=== PATIENT | female | born 1995 | race Caucasian/White ===

== ENCOUNTER 2016-09-11 20:10 | Emergency (ER) | payer OTHER ==
[2016-09-11] MEDS ORDERED: levETIRAcetam IV 1,500 MG in SALINE 1 100ML.BAG IVPB STA (20:51)
[2016-09-11] MEDS ORDERED: KETOROLAC 30 MG/ML 1 ML VIAL IVP STA (20:52)
[2016-09-11] MEDS ORDERED: ONDANSETRON 4 MG/2 ML VIAL IVP STA (20:52)
[2016-09-11 21:10] LABS: Anion Gap 10 mmol/L; Blood Urea Nitrogen 18 mg/dL (7-17); Calcium 9.8 mg/dL (8.4-10.2); Carbon Dioxide 25 mmol/L (22-30); Chloride 107 mmol/L (98-107); Creatine Kinase 85 U/L (30-135); Glucose 104 mg/dL (74-99); Magnesium 2.2 mg/dL (1.6-2.3); Non-African American GFR(MDRD) >60 (>60 ml/min/1.73 sqM); Potassium 4.3 mmol/L (3.5-5.1); Sodium 142 mmol/L (137-145)
[2016-09-11 21:11] LABS: Basophils # (A) 0.1 k/uL (0-0.2); Basophils % (A) 1 %; CH 31.4; CHCM 35.8; Eosinophils # (A) 0.1 k/uL (0-0.7); Eosinophils % (A) 1 %; HCT 40.1 % (34.0-46.0); HDW 2.76; HGB 13.8 gm/dL (11.4-16.0); Luc # (Auto) 0.26; Luc % (Auto) 3; Lymphocytes # (A) 4.4 k/uL (1.0-4.8); Lymphocytes % (A) 44 %; MCH 30.3 pg (25.0-35.0); MCHC 34.4 g/dL (31.0-37.0); MCV 88.1 fL (80.0-100.0); Mean Platelet Volume 6.3; Monocytes # (A) 0.5 k/uL (0-1.0); Monocytes % (A) 5 %; Neutrophils # (A) 4.6 k/uL (1.3-7.7); Neutrophils % (A) 46 %; RBC 4.56 m/uL (3.80-5.40); RDW 12.8 % (11.5-15.5); WBC (Perox) 10.38
--- NOTE | 2016-09-11 21:49 | ED ---
General Adult HPI - General Chief complaint: Seizure Stated complaint: Seizure Time Seen by Provider: 09/11/16 20:36 Source: patient, family, RN notes reviewed, old records reviewed Mode of arrival: EMS Limitations: no limitations - History of Present Illness Initial comments: 21 year old female with history of seizures presenting for seizure. Patient's states she had 4 short seizures prior to arrival today. Last seizure was about 3 weeks ago. Patient is supposed to be on seizure medication but has not taken it many months due to side effects. She does follow with Dr. Reinoso , neurology but has not followed up many months. She states she has a headache at this time. She does not remember the seizures. She denies any known injury from the seizures. - Related Data Home Medications Medication Instructions Recorded Confirmed Acetaminophen Tab [Tylenol Tab] 325 - 650 mg PO Q4H PRN 09/11/16 09/11/16 Previous Rx's Medication Instructions Recorded levETIRAcetam [Keppra] 500 mg PO BID 30 Days 09/11/16 Allergies Allergy/AdvReac Type Severity Reaction Status Date / Time No Known Allergies Allergy Verified 09/11/16 21:10 Review of Systems ROS Statement: Those systems with pertinent positive or pertinent negative responses have been documented in the HPI. ROS Other: All systems not noted in ROS Statement are negative. Past Medical History Past Medical History: Seizure Disorder Additional Past Medical History / Comment(s): ovarian cysts, HYPOGLYCEMIC, CONCUSSION IN PAST WITH FIRST SEIZURE SHE FELL. MIGRAINES, SEASONAL ALLERGIES/ SINUS, KIDNEYS STONE/UTI, ECZEMA, FX TO DALTON ANKLE/WRISTS-NO SX ,PT STATES CURRENTLY History of Any Multi-Drug Resistant Organisms: MRSA Date of last positivie culture/infection: 2005 MDRO Source:: R cheek Past Surgical History: No Surgical Hx Reported Additional Past Surgical History / Comment(s): Patient had a renal stent placed Past Anesthesia/Blood Transfusion Reactions: No Reported Reaction Additional Past Anesthesia/Blood Transfusion Reaction / Comment(s): WITH PAST DENTAL WORK-NUMBED MOUTH -NO REACTION TO MEDS Past Psychological History: No Psychological Hx Reported Smoking Status: Former smoker Past Alcohol Use History: None Reported Additional Past Alcohol Use History / Comment(s): SMOKED X 3 YEARS 1PPD, QUIT 2011 Past Drug Use History: None Reported - Past Family History Mother Family Medical History: Osteoarthritis (OA) Additional Family Medical History / Comment(s): POLYCYSTIC OVARY DISEASE, HYPOGLYCEMIA, BONE SPURS, HERNIATED DISCS Father Family Medical History: Asthma Additional Family Medical History / Comment(s): HERNIATED DISCS/FUSIONS, HYPOGLYCEMIA General Exam - General Exam Comments Initial Comments: General: Awake and Alert. No acute distress. Does not appear acutely ill. Eyes: FINA, EOM intact. No nystagmus. No scleral icterus. HENT: Atraumatic, normocephalic. Mucous membranes moist. Trachea midline. Neck: The neck is supple, there is no tenderness or JVD. Cardiovascular: Regular rate and rhythm. No murmur, rub, or gallop is appreciated. Distal pulses intact. Respiratory: Lungs are clear to auscultation bilaterally. No wheezes, rales, rhonchi. No respiratory distress. Gastrointestinal: Soft, Nontender. No rebound or guarding. Non-distended. No masses or organomegaly noted. No CVA tenderness. Musculoskeletal: No tenderness. Normal ROM. No gross deformity. No strength deficits. Neurological: A&Ox3. CN II-XII grossly intact, There are no obvious motor or sensory deficits. Coordination appears grossly intact. Speech is normal. Skin: Skin is warm and dry and no rashes or lesions are noted. Psychiatric: Cooperative, appropriate mood & affect, normal judgment. Limitations: no limitations Course Vital Signs 09/11/16 09/11/16 09/11/16 20:22 21:03 21:46 Temperature 98.2 F Pulse Rate 75 60 48 L Respiratory 18 18 16 Rate Blood Pressure 143/102 110/81 86/51 O2 Sat by Pulse 99 98 97 Oximetry 09/11/16 21:53 Temperature Pulse Rate 45 L Respiratory Rate Blood Pressure 98/55 O2 Sat by Pulse 98 Oximetry EKG Findings - EKG Comments: EKG Findings:: 20:35. Sinus rhythm. Rate 51. CA 120. QRS 90. QT/QTc 462/ 425. Normal axis. No STEMI. Normal EKG. Medical Decision Making - Medical Decision Making 21-year-old female with history of seizures presenting for seizures. Patient with history of medication noncompliance due to side effect profile. Eschen with patient about risks and benefits of seizures or seizure medications. Patient ultimately elected to have Keppra load. She was given Keppra in the ED. Patient also given medication for headache. Otherwise she appears clinically stable without any focal neurological deficits. was present and also part of this conversation. Patient was ultimately observed in the ED for several hours. She had no return of seizures. Lab work was performed and grossly unremarkable. She is stable for discharge home. Discussed close follow -up with PCP and Dr. Reinoso. Discussed compliance with Keppra and was provided Rx for this. Discussed concerning signs and symptoms for immediate return to the ED. Patient is agreeable with plan and discharge home. - Lab Data Result diagrams: 09/11/16 20:30 09/11/16 20:30 Lab Results 09/11/16 09/11/16 09/11/16 Range/Units 20:30 20:30 21:08 WBC 10.0 (3.8-10.6) k/uL RBC 4.56 (3.80-5.40) m/uL Hgb 13.8 (11.4-16.0) gm/dL Hct 40.1 (34.0-46.0) % MCV 88.1 (80.0-100.0) fL MCH 30.3 (25.0-35.0) pg MCHC 34.4 (31.0-37.0) g/dL RDW 12.8 (11.5-15.5) % Plt Count 325 (150-450) k/uL Neutrophils % 46 % Lymphocytes % 44 % Monocytes % 5 % Eosinophils % 1 % Basophils % 1 % Neutrophils # 4.6 (1.3-7.7) k/uL Lymphocytes # 4.4 (1.0-4.8) k/uL Monocytes # 0.5 (0-1.0) k/uL Eosinophils # 0.1 (0-0.7) k/uL Basophils # 0.1 (0-0.2) k/uL Sodium 142 (137-145) mmol/L Potassium 4.3 (3.5-5.1) mmol/L Chloride 107 (98-107) mmol/L Carbon Dioxide 25 (22-30) mmol/L Anion Gap 10 mmol/L BUN 18 H (7-17) mg/dL Creatinine 0.70 (0.52-1.04) mg/dL Est GFR (MDRD) Af Amer >60 (>60 ml/min/1.73 sqM) Est GFR (MDRD) Non-Af >60 (>60 ml/min/1.73 sqM) Glucose 104 H (74-99) mg/dL Calcium 9.8 (8.4-10.2) mg/dL Magnesium 2.2 (1.6-2.3) mg/dL Creatine Kinase 85 (30-135) U/L Urine HCG, Qual Not Detected (Not Detectd) - EKG Data -: EKG Interpreted by Me EKG shows normal: sinus rhythm Rate: normal Disposition Clinical Impression: Seizure Disposition: HOME SELF-CARE Instructions: Recurrent Seizures in Adults (ED) Additional Instructions: Please take Keppra and follow up with Dr. Reinoso as soon as possible. Prescriptions: levETIRAcetam [Keppra] 500 mg PO BID 30 Days Referrals: Shaq Yanez MD [Primary Care Provider] - 1-2 days Phoebe Reinoso MD [STAFF PHYSICIAN] - 1-2 days Time of Disposition: 22:45
[2016-09-11 22:53] VITALS: BP 106/55; PULSE 62; RESP 18; TEMP 97.8
== END 2016-09-11 22:53 | disposition home or self-care (01) ==
LOC: EC 20:10
DX: G40.909 Epilepsy, unspecified, not intractable, without status epilepticus (principal); R51 Headache; Z87.891 Personal history of nicotine dependence
CPT/HCPCS: 36415; 80048; 82550; 83735; 85025; 81025; 99284; 96374; 96375; J2405; J1885; J1953; 93005

== ENCOUNTER 2016-09-29 19:22 | Emergency (ER) | payer OTHER ==
[2016-09-29 19:41] VITALS: BP 112/70; PULSE 72; RESP 18; TEMP 98
[2016-09-29] MEDS ORDERED: KETOTIFEN 0.025% OPHTH DROPS 5 ML BTL BOTH EYES STA (19:50)
--- NOTE | 2016-09-29 19:53 | ED ---
Eye Problem HPI - General Chief complaint: Eye Problems Stated complaint: left eye irritation Time Seen by Provider: 09/29/16 19:42 Source: patient, RN notes reviewed Mode of arrival: ambulatory Limitations: no limitations - History of Present Illness Initial comments: 21-year-old female presents to the emergency department with a chief complaint of left eye irritation. Patient states today she started itching became watery and she's having some burning-like sensation. Patient denies any changes in vision. Patient denies fever chills with this. Patient denies any purulent material or discharge. Patient states that she was concerned so she thought that she should be evaluated.Patient denies any recent fever, chills, shortness of breath, chest pain, back pain, abdominal pain, nausea vomiting, numbness or tingling, dysuria or hematuria, constipation or diarrhea, headaches or visual changes, or any other current symptoms. - Related Data Home Medications Medication Instructions Recorded Confirmed Acetaminophen Tab [Tylenol Tab] 325 - 650 mg PO Q4H PRN 09/11/16 09/11/16 Previous Rx's Medication Instructions Recorded levETIRAcetam [Keppra] 500 mg PO BID 30 Days 09/11/16 Allergies Allergy/AdvReac Type Severity Reaction Status Date / Time No Known Allergies Allergy Verified 09/11/16 21:10 Review of Systems ROS Statement: Those systems with pertinent positive or pertinent negative responses have been documented in the HPI. ROS Other: All systems not noted in ROS Statement are negative. Past Medical History Past Medical History: Seizure Disorder Additional Past Medical History / Comment(s): ovarian cysts, HYPOGLYCEMIC, CONCUSSION IN PAST WITH FIRST SEIZURE SHE FELL. MIGRAINES, SEASONAL ALLERGIES/ SINUS, KIDNEYS STONE/UTI, ECZEMA, FX TO DALTON ANKLE/WRISTS-NO SX ,PT STATES CURRENTLY History of Any Multi-Drug Resistant Organisms: MRSA Date of last positivie culture/infection: 2005 MDRO Source:: R cheek Past Surgical History: No Surgical Hx Reported Additional Past Surgical History / Comment(s): Patient had a renal stent placed Past Anesthesia/Blood Transfusion Reactions: No Reported Reaction Additional Past Anesthesia/Blood Transfusion Reaction / Comment(s): WITH PAST DENTAL WORK-NUMBED MOUTH -NO REACTION TO MEDS Past Psychological History: No Psychological Hx Reported Smoking Status: Former smoker Past Alcohol Use History: None Reported Additional Past Alcohol Use History / Comment(s): SMOKED X 3 YEARS 1PPD, QUIT 2011 Past Drug Use History: None Reported - Past Family History Mother Family Medical History: Osteoarthritis (OA) Additional Family Medical History / Comment(s): POLYCYSTIC OVARY DISEASE, HYPOGLYCEMIA, BONE SPURS, HERNIATED DISCS Father Family Medical History: Asthma Additional Family Medical History / Comment(s): HERNIATED DISCS/FUSIONS, HYPOGLYCEMIA General Exam Limitations: no limitations General appearance: alert, in no apparent distress Head exam: Present: atraumatic, normocephalic, normal inspection Eye exam: Present: normal appearance, PERRL, EOMI, conjunctival injection ( Minimal), other (Fluorescent staining done that does not show any corneal abrasion or foreign body with with aguilar lamp). Absent: scleral icterus, periorbital swelling, periorbital tenderness ENT exam: Present: normal exam, mucous membranes moist Respiratory exam: Present: normal lung sounds bilaterally. Absent: respiratory distress, wheezes, rales, rhonchi, stridor Cardiovascular Exam: Present: regular rate, normal rhythm, normal heart sounds. Absent: systolic murmur, diastolic murmur, rubs, gallop, clicks Neurological exam: Present: alert, oriented X3 Psychiatric exam: Present: normal affect, normal mood Skin exam: Present: warm, dry, intact, normal color. Absent: rash Course Vital Signs 09/29/16 19:38 Temperature 98.0 F Pulse Rate 72 Respiratory 18 Rate Blood Pressure 112/70 O2 Sat by Pulse 100 Oximetry Medical Decision Making - Medical Decision Making 20-year-old female presents to emergency room chief complaint of what appears to be ALLERGIC conjunctivitis. This we will start her on eyedrops to help with her symptoms. Discussed follow-up and given ophthalmology as well. Discussed follow-up patient's questions. She stated that she understood. She will be discharged home. Disposition Clinical Impression: Allergic conjunctivitis Disposition: HOME SELF-CARE Condition: Stable Instructions: Conjunctivitis (ED) Additional Instructions: Please use medication as discussed. Please follow up with family doctor if symptoms have not improved over the next two days. Please return to the emergency room if your symptoms increase or worsen or for any other concerns. Use drop twice a day to both eyes. Referrals: Shaq Yanez MD [Primary Care Provider] - 1-2 days Time of Disposition: 19:53
== END 2016-09-29 20:00 | disposition home or self-care (01) ==
LOC: EC 19:22
DX: O99.89 Other specified diseases and conditions complicating pregnancy, childbirth and the puerperium (principal); H10.12 Acute atopic conjunctivitis, left eye; Z87.891 Personal history of nicotine dependence; Z3A.00 Weeks of gestation of pregnancy not specified
CPT/HCPCS: 99283

== ENCOUNTER 2017-02-05 12:12 | Emergency (ER) | payer OTHER ==
[2017-02-05] MEDS ORDERED: ONDANSETRON ODT 4 MG TAB PO STA (13:24)
[2017-02-05] MEDS ORDERED: KETOROLAC 60 MG/2 ML VIAL IM STA (13:24)
--- NOTE | 2017-02-05 13:28 | ED ---
Female Urogenital HPI - General Chief complaint: Vaginal Bleeding Stated complaint: Abd pain, vaginal bleeding Time Seen by Provider: 02/05/17 13:16 Source: patient Mode of arrival: ambulatory Limitations: no limitations - History of Present Illness Initial comments: This 21-year-old white female presents with the complaint of some bilateral lower pelvic pain/cramping. It has been present for the last 4 days. She states that she initially started her period towards beginning of the month and it went for approximately 4 days. She then has had some slight vaginal bleeding since which is darkish in nature. This is somewhat atypical for her. The pain seems radiate into her inferior lumbar spine bilaterally. She denies any fevers or chills. She denies any other vaginal discharge. There are no urinary symptoms. She has had some slight nausea but no vomiting. She does not think that she is but is not sure. She does have a history of ovarian cysts as well as kidney stones. No other complaints or modifying factors. She is unsure if she may have lost a tampon in her vagina. Last Menstrual Period: 01/26/17 - Related Data Home Medications Medication Instructions Recorded Confirmed Acetaminophen Tab [Tylenol Tab] 325 - 650 mg PO Q4H PRN 09/11/16 02/05/17 Ibuprofen [Motrin] 200 - 400 mg PO Q6HR PRN 02/05/17 02/05/17 Allergies Allergy/AdvReac Type Severity Reaction Status Date / Time No Known Allergies Allergy Verified 02/05/17 14:05 Review of Systems ROS Statement: Those systems with pertinent positive or pertinent negative responses have been documented in the HPI. ROS Other: All systems not noted in ROS Statement are negative. Past Medical History Past Medical History: Seizure Disorder Additional Past Medical History / Comment(s): ovarian cysts, HYPOGLYCEMIC, CONCUSSION IN PAST WITH FIRST SEIZURE SHE FELL. MIGRAINES, SEASONAL ALLERGIES/ SINUS, KIDNEYS STONE/UTI, ECZEMA, FX TO DALTON ANKLE/WRISTS-NO SX ,PT STATES CURRENTLY History of Any Multi-Drug Resistant Organisms: MRSA Date of last positivie culture/infection: 2005 MDRO Source:: R cheek Past Surgical History: No Surgical Hx Reported Additional Past Surgical History / Comment(s): Patient had a renal stent placed Past Anesthesia/Blood Transfusion Reactions: No Reported Reaction Additional Past Anesthesia/Blood Transfusion Reaction / Comment(s): WITH PAST DENTAL WORK-NUMBED MOUTH -NO REACTION TO MEDS Past Psychological History: No Psychological Hx Reported Smoking Status: Current every day smoker Past Alcohol Use History: None Reported Past Drug Use History: None Reported - Past Family History Mother Family Medical History: Osteoarthritis (OA) Additional Family Medical History / Comment(s): POLYCYSTIC OVARY DISEASE, HYPOGLYCEMIA, BONE SPURS, HERNIATED DISCS Father Family Medical History: Asthma Additional Family Medical History / Comment(s): HERNIATED DISCS/FUSIONS, HYPOGLYCEMIA General Exam - General Exam Comments Initial Comments: GENERAL: The patient is well nourished and well hydrated. VITAL SIGNS: Heart rate, blood pressure, respiratory rate reviewed as recorded in nurse's notes. EYES: Pupils are round and reactive. Extraocular movements are intact. No conjunctival / lid redness or swelling. ENT: No external evidence of injury, swelling, or ecchymosis. Airway is patent. Throat is clear. NECK: Nontender. No swelling or evidence of injury. No subcutaneous emphysema. Trachea is midline. No thyroid mass. HEART: Regular rate and rhythm. Good peripheral pulses. LUNGS/CHEST: Breath sounds clear and equal bilaterally. No rales, rhonchi, or wheezes. No ecchymosis, subcutaneous emphysema, or tenderness. ABDOMEN: There is mild tenderness present to the bilateral lower pelvic region. No palpable masses or organomegaly. No peritoneal signs. No abdominal wall swelling or ecchymosis. EXTREMITIES: No extremity tenderness. Normal muscle tone and function. No thoracolumbar tenderness. NEUROLOGIC: Sensation is grossly intact. Cranial nerve exam reveals face is symmetrical, tongue is midline, speech is clear. SKIN: No abrasions or ecchymosis is noted. No induration or masses noted. PSYCHIATRIC: Alert and oriented. Appropriate behavior and judgment. Vaginal exam: There is some blood present in the vaginal canal. There is some mild tenderness to the uterus as well as bilateral adnexa. There is no vaginal discharge. There is no perineal lesions. Limitations: no limitations Course Vital Signs 02/05/17 02/05/17 12:26 16:25 Temperature 97.7 F 97.5 F L Pulse Rate 72 51 L Respiratory 16 18 Rate Blood Pressure 133/87 99/64 O2 Sat by Pulse 99 95 Oximetry Medical Decision Making - Medical Decision Making The patient was seen and examined. She did receive some parenteral Toradol and some oral dissolving Zofran. All diagnostics are reviewed. Pelvic exam is completed. Cultures are taken and she is instructed to follow-up with her doctor in 3 days for the results of these cultures. The patient had a pelvic ultrasound which didn't show evidence of a hemorrhagic cyst on the right ovary but no evidence of torsion. The laboratories reviewed. It is felt as though her pain likely is due to the ovarian cyst. Upon going to reevaluate the patient appears that she is eloped from the ER. She apparently did not let anybody know that she was leaving. - Lab Data Result diagrams: 02/05/17 13:42 Lab Results 02/05/17 02/05/17 02/05/17 Range/Units 13:42 13:42 13:42 WBC 9.2 (3.8-10.6) k/uL RBC 4.45 (3.80-5.40) m/uL Hgb 13.8 (11.4-16.0) gm/dL Hct 40.0 (34.0-46.0) % MCV 89.9 (80.0-100.0) fL MCH 30.9 (25.0-35.0) pg MCHC 34.4 (31.0-37.0) g/dL RDW 12.6 (11.5-15.5) % Plt Count 355 (150-450) k/uL Neutrophils % 64 % Lymphocytes % 29 % Monocytes % 4 % Eosinophils % 2 % Basophils % 0 % Neutrophils # 5.9 (1.3-7.7) k/uL Lymphocytes # 2.7 (1.0-4.8) k/uL Monocytes # 0.4 (0-1.0) k/uL Eosinophils # 0.2 (0-0.7) k/uL Basophils # 0.0 (0-0.2) k/uL Urine Color Yellow Urine Appearance Clear (Clear) Urine pH 6.0 (5.0-8.0) Ur Specific [place] 1.019 (1.001-1.035) Urine Protein Negative (Negative) Urine Glucose (UA) Negative (Negative) Urine Ketones Negative (Negative) Urine Blood Moderate H (Negative) Urine Nitrite Negative (Negative) Urine Bilirubin Negative (Negative) Urine Urobilinogen <2.0 (<2.0) mg/dL Ur Leukocyte Esterase Negative (Negative) Urine RBC 1 (0-5) /hpf Urine WBC 3 (0-5) /hpf Ur Squamous Epith Cells <1 (0-4) /hpf Urine Mucus Rare H (None) /hpf Urine HCG, Qual Not Detected (Not Detectd) Trichomonas Ag (Rapid) (Negative) 02/05/17 Range/Units 14:04 WBC (3.8-10.6) k/uL RBC (3.80-5.40) m/uL Hgb (11.4-16.0) gm/dL Hct (34.0-46.0) % MCV (80.0-100.0) fL MCH (25.0-35.0) pg MCHC (31.0-37.0) g/dL RDW (11.5-15.5) % Plt Count (150-450) k/uL Neutrophils % % Lymphocytes % % Monocytes % % Eosinophils % % Basophils % % Neutrophils # (1.3-7.7) k/uL Lymphocytes # (1.0-4.8) k/uL Monocytes # (0-1.0) k/uL Eosinophils # (0-0.7) k/uL Basophils # (0-0.2) k/uL Urine Color Urine Appearance (Clear) Urine pH (5.0-8.0) Ur Specific [place] (1.001-1.035) Urine Protein (Negative) Urine Glucose (UA) (Negative) Urine Ketones (Negative) Urine Blood (Negative) Urine Nitrite (Negative) Urine Bilirubin (Negative) Urine Urobilinogen (<2.0) mg/dL Ur Leukocyte Esterase (Negative) Urine RBC (0-5) /hpf Urine WBC (0-5) /hpf Ur Squamous Epith Cells (0-4) /hpf Urine Mucus (None) /hpf Urine HCG, Qual (Not Detectd) Trichomonas Ag (Rapid) Negative (Negative) Disposition Clinical Impression: Pelvic pain, Hemorrhagic ovarian cyst, Dysfunctional or functional uterine hemorrhage Disposition: HOME SELF-CARE Condition: Good Referrals: Shaq Yanez MD [Primary Care Provider] - 1-2 days Time of Disposition: 18:00
[2017-02-05 14:01] LABS: Basophils % (A) 0 %; CH 31.3; Eosinophils # (A) 0.2 k/uL (0-0.7); Eosinophils % (A) 2 %; HDW 2.67; HGB 13.8 gm/dL (11.4-16.0); Luc # (Auto) 0.11; Luc % (Auto) 1; Lymphocytes # (A) 2.7 k/uL (1.0-4.8); Lymphocytes % (A) 29 %; MCH 30.9 pg (25.0-35.0); MCHC 34.4 g/dL (31.0-37.0); MCV 89.9 fL (80.0-100.0); Mean Platelet Volume 6.7; Monocytes # (A) 0.4 k/uL (0-1.0); Monocytes % (A) 4 %; Neutrophils # (A) 5.9 k/uL (1.3-7.7); Neutrophils % (A) 64 %; RBC 4.45 m/uL (3.80-5.40); RDW 12.6 % (11.5-15.5); WBC 9.2 k/uL (3.8-10.6); WBC (Perox) 9.16
[2017-02-05 14:14] LABS: Appearance,Urine Clear (Clear); Bilirubin,Urine Negative (Negative); Glucose,Urine (UA) Negative (Negative); Ketones,Urine Negative (Negative); Leukocyte Esterase,Urine Negative (Negative); Mucus,Urine Rare /hpf; Nitrite,Urine Negative (Negative); Particle Count 1601; Protein,Urine Negative (Negative); RBC,Urine 1 /hpf (0-5); Specific Gravity,Urine 1.019 (1.001-1.035); Squamous Epithelial Cell,Urine <1 /hpf (0-4); UA Billing (MACRO vs. MICRO) MICRO; Urobilinogen,Urine <2.0 mg/dL (<2.0); WBC,Urine 3 /hpf (0-5)
[2017-02-05 16:27] VITALS: BP 99/64; PULSE 51; RESP 18; TEMP 97.5
--- NOTE | 2017-02-05 16:27 | US ---
EXAMINATION TYPE: US transvaginal DATE OF EXAM: 02/05/2017 COMPARISON: Ultrasound 10/01/2015 CLINICAL HISTORY: pain. Lower pelvic pain TECHNIQUE: Transvaginal (TV) Date of LMP: 01/26/2017, EXAM MEASUREMENTS: Uterus: 9.0 x 5.5 x 4.5 cm Endometrial Stripe: 0.4 cm Right Ovary: 5.5 x 3.7 x 3.5 cm Left Ovary: 2.6 x 1.8 x 2.2 cm 1. Uterus: Anteverted wnl 2. Endometrium: wnl 3. Right Ovary: enlarged. Complex lesion seen, appears nonvascular = 4.4 x 2.5 x 3.2 cm 4. Left Ovary: follicles seen Spectral, color and waveform doppler imaging shows good arterial and venous flow within the ovaries ; there is no evidence for ovarian torsion. 5. Bilateral Adnexa: wnl 6. Posterior cul-de-sac: free fluid Cervix- fluid seen within canal IMPRESSION: Findings within the right ovary may represent hemorrhagic cyst. Ovarian torsion is not ev ident. Additional findings above.
== END 2017-02-05 16:51 | disposition home or self-care (01) ==
LOC: EC 12:12
DX: N83.201 Unspecified ovarian cyst, right side (principal); N93.8 Other specified abnormal uterine and vaginal bleeding; F17.200 Nicotine dependence, unspecified, uncomplicated
CPT/HCPCS: 36415; 87591; 87491; 85025; 81001; 81025; 87808; 87070; 93975; 76830; 99284; 96372; J1885; 87205

== ENCOUNTER 2017-03-06 20:23 | Emergency (ER) | payer OTHER ==
[2017-03-06] MEDS ORDERED: SODIUM CHLORIDE 0.9% 1,000 ML IV ONE (20:32)
[2017-03-06] MEDS ORDERED: ONDANSETRON 4 MG/2 ML VIAL IVP STA (20:32)
[2017-03-06] MEDS ORDERED: KETOROLAC 30 MG/ML 1 ML VIAL IVP STA (20:32)
[2017-03-06] MEDS ORDERED: MORPHINE SULFATE 4 MG/ML SYRINGE IVP STA (20:59)
[2017-03-06 21:02] LABS: Amorphous Sediment,Urine Occasional /hpf; Appearance,Urine Cloudy (Clear); Bacteria,Urine Few /hpf; Bilirubin,Urine Negative (Negative); Glucose,Urine (UA) Negative (Negative); Ketones,Urine Negative (Negative); Leukocyte Esterase,Urine Negative (Negative); Mucus,Urine Rare /hpf; Nitrite,Urine Negative (Negative); PH, Urine 7.5 (5.0-8.0); Particle Count 7850; Protein,Urine Negative (Negative); Specific Gravity,Urine 1.017 (1.001-1.035); Squamous Epithelial Cell,Urine <1 /hpf (0-4); UA Billing (MACRO vs. MICRO) MICRO; Urobilinogen,Urine <2.0 mg/dL (<2.0)
[2017-03-06 21:07] LABS: Basophils % (A) 0 %; CH 31.8; CHCM 34.7; Eosinophils # (A) 0.2 k/uL (0-0.7); Eosinophils % (A) 2 %; HCT 40.3 % (34.0-46.0); HDW 2.67; HGB 13.5 gm/dL (11.4-16.0); Luc # (Auto) 0.15; Luc % (Auto) 1; Lymphocytes # (A) 4.4 k/uL (1.0-4.8); Lymphocytes % (A) 42 %; MCH 30.9 pg (25.0-35.0); MCHC 33.6 g/dL (31.0-37.0); Mean Platelet Volume 6.7; Monocytes # (A) 0.5 k/uL (0-1.0); Monocytes % (A) 4 %; Neutrophils # (A) 5.4 k/uL (1.3-7.7); Neutrophils % (A) 51 %; RBC 4.38 m/uL (3.80-5.40); RDW 12.7 % (11.5-15.5); WBC 10.6 k/uL (3.8-10.6); WBC (Perox) 10.51
--- NOTE | 2017-03-06 21:09 | ED ---
Female Urogenital HPI - General Chief complaint: Urogenital Stated complaint: Lower Abd pain Time Seen by Provider: 03/06/17 20:25 Source: patient, EMS, RN notes reviewed, old records reviewed Mode of arrival: EMS Limitations: no limitations - History of Present Illness Initial comments: This is a 21-year-old female presenting to emergency Department via EMS with a chief complaint of acute lower pelvic pain. Patient reports that approximately 2 hours swish started at a sharp stabbing pain in her pelvis. She states that a few days ago having intercourse she had sharp pain but shortly subsided afterwards. She states she was feeling findings prior 2 days. Does have a history of ovarian cyst. Denies any nausea or vomiting denies any fever or chills. Reports she's had normal bowel movements earlier today. Patient states that she's had no vaginal discharge. - Related Data Home Medications Medication Instructions Recorded Confirmed Acetaminophen Tab [Tylenol Tab] 325 - 650 mg PO Q4H PRN 09/11/16 03/06/17 Ibuprofen [Motrin] 200 - 400 mg PO Q6HR PRN 02/05/17 03/06/17 Previous Rx's Medication Instructions Recorded HYDROcodone/APAP 5-325MG [Violet 1 tab PO Q6HR PRN #15 tab 03/06/17 5-325] Ondansetron Odt [Zofran Odt] 4 mg PO Q8HR PRN #12 tab 03/06/17 Allergies Allergy/AdvReac Type Severity Reaction Status Date / Time No Known Allergies Allergy Verified 03/06/17 20:43 Review of Systems ROS Statement: Those systems with pertinent positive or pertinent negative responses have been documented in the HPI. ROS Other: All systems not noted in ROS Statement are negative. Past Medical History Past Medical History: Seizure Disorder Additional Past Medical History / Comment(s): ovarian cysts, HYPOGLYCEMIC, CONCUSSION IN PAST WITH FIRST SEIZURE SHE FELL. MIGRAINES, SEASONAL ALLERGIES/ SINUS, KIDNEYS STONE/UTI, ECZEMA, FX TO DALTON ANKLE/WRISTS-NO SX History of Any Multi-Drug Resistant Organisms: MRSA Date of last positivie culture/infection: 2005 MDRO Source:: R cheek Past Surgical History: No Surgical Hx Reported Additional Past Surgical History / Comment(s): Patient had a renal stent placed Past Anesthesia/Blood Transfusion Reactions: No Reported Reaction Additional Past Anesthesia/Blood Transfusion Reaction / Comment(s): WITH PAST DENTAL WORK-NUMBED MOUTH -NO REACTION TO MEDS Past Psychological History: No Psychological Hx Reported Smoking Status: Current every day smoker Past Alcohol Use History: None Reported Past Drug Use History: None Reported - Past Family History Mother Family Medical History: Osteoarthritis (OA) Additional Family Medical History / Comment(s): POLYCYSTIC OVARY DISEASE, HYPOGLYCEMIA, BONE SPURS, HERNIATED DISCS Father Family Medical History: Asthma Additional Family Medical History / Comment(s): HERNIATED DISCS/FUSIONS, HYPOGLYCEMIA General Exam - General Exam Comments Initial Comments: This is a pleasant 21-year-old female. Patient does appear to be in some discomfort. Limitations: no limitations General appearance: alert, in no apparent distress Head exam: Present: atraumatic, normocephalic, normal inspection Eye exam: Present: normal appearance, PERRL, EOMI. Absent: scleral icterus, conjunctival injection, periorbital swelling ENT exam: Present: normal exam, mucous membranes moist Neck exam: Present: normal inspection. Absent: tenderness, meningismus, lymphadenopathy Respiratory exam: Present: normal lung sounds bilaterally. Absent: respiratory distress, wheezes, rales, rhonchi, stridor Cardiovascular Exam: Present: regular rate, normal rhythm, normal heart sounds. Absent: systolic murmur, diastolic murmur, rubs, gallop, clicks GI/Abdominal exam: Present: soft, tenderness (Suprapubic lower abdominal tenderness.), normal bowel sounds. Absent: distended, guarding, rebound, rigid External exam: Present: normal external exam Speculum exam: Present: normal speculum exam. Absent: vaginal discharge By manual exam: Present: cervical motion tenderness, adnexal tenderness. Absent : normal by manual exam, adnexal mass, uterine enlargement, uterine tenderness Extremities exam: Present: normal inspection, full ROM, normal capillary refill. Absent: tenderness, pedal edema, joint swelling, calf tenderness Back exam: Present: normal inspection Neurological exam: Present: alert, oriented X3, CN II-XII intact Psychiatric exam: Present: normal affect, normal mood Skin exam: Present: warm, dry, intact, normal color. Absent: rash Course Vital Signs 03/06/17 03/06/17 20:24 23:06 Temperature 97.9 F 98.2 F Pulse Rate 57 L 90 Respiratory 16 20 Rate Blood Pressure 112/73 119/78 O2 Sat by Pulse 99 97 Oximetry Medical Decision Making - Medical Decision Making This is a 21-year-old female with acute onset of suprapubic pelvic pain. Patient reports that she did have intercourse a few days ago had a short episode of this pain. At this time patient's somewhat tender suprapubic area. IV fluids and lab work obtained. Patient is given IV pain medicine. Patient's lab work was all within normal limits. Pelvic exam was performed and did show no significant discharge. Patient did have some cervical and adnexal tenderness. Patient transvaginal ultrasound was obtained. There is some free fluid within the pelvis likely could be related to a hemorrhagic cyst. Patient' s ovaries did not show any major stenosis at this time however given patient's sudden onset of pain and likely a cyst ruptured causing the fluid. 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 Discussed monitoring for any fevers or any other abnormal symptoms. Patient will be discharged with pain and nausea medicine. Patient understands treatment plan will comply. Return parameters were discussed. - Lab Data Result diagrams: 03/06/17 20:40 03/06/17 20:40 Lab Results 03/06/17 03/06/17 03/06/17 Range/Units 20:40 20:40 20:40 WBC 10.6 (3.8-10.6) k/uL RBC 4.38 (3.80-5.40) m/uL Hgb 13.5 (11.4-16.0) gm/dL Hct 40.3 (34.0-46.0) % MCV 92.0 (80.0-100.0) fL MCH 30.9 (25.0-35.0) pg MCHC 33.6 (31.0-37.0) g/dL RDW 12.7 (11.5-15.5) % Plt Count 333 (150-450) k/uL Neutrophils % 51 % Lymphocytes % 42 % Monocytes % 4 % Eosinophils % 2 % Basophils % 0 % Neutrophils # 5.4 (1.3-7.7) k/uL Lymphocytes # 4.4 (1.0-4.8) k/uL Monocytes # 0.5 (0-1.0) k/uL Eosinophils # 0.2 (0-0.7) k/uL Basophils # 0.0 (0-0.2) k/uL PT (9.0-12.0) sec INR (<1.2) APTT (22.0-30.0) sec Sodium 138 (137-145) mmol/L Potassium 4.0 (3.5-5.1) mmol/L Chloride 106 (98-107) mmol/L Carbon Dioxide 21 L (22-30) mmol/L Anion Gap 11 mmol/L BUN 14 (7-17) mg/dL Creatinine 0.70 (0.52-1.04) mg/dL Est GFR (MDRD) Af Amer >60 (>60 ml/min/1.73 sqM) Est GFR (MDRD) Non-Af >60 (>60 ml/min/1.73 sqM) Glucose 112 H (74-99) mg/dL Calcium 9.5 (8.4-10.2) mg/dL Total Bilirubin 0.9 (0.2-1.3) mg/dL AST 16 (14-36) U/L ALT 27 (9-52) U/L Alkaline Phosphatase 56 (38-126) U/L Total Protein 6.6 (6.3-8.2) g/dL Albumin 4.1 (3.5-5.0) g/dL Urine Color Urine Appearance (Clear) Urine pH (5.0-8.0) Ur Specific [place] (1.001-1.035) Urine Protein (Negative) Urine Glucose (UA) (Negative) Urine Ketones (Negative) Urine Blood (Negative) Urine Nitrite (Negative) Urine Bilirubin (Negative) Urine Urobilinogen (<2.0) mg/dL Ur Leukocyte Esterase (Negative) Ur Squamous Epith Cells (0-4) /hpf Amorphous Sediment (None) /hpf Urine Bacteria (None) /hpf Urine Mucus (None) /hpf Urine HCG, Qual Not Detected (Not Detectd) 03/06/17 03/06/17 Range/Units 20:40 20:40 WBC (3.8-10.6) k/uL RBC (3.80-5.40) m/uL Hgb (11.4-16.0) gm/dL Hct (34.0-46.0) % MCV (80.0-100.0) fL MCH (25.0-35.0) pg MCHC (31.0-37.0) g/dL RDW (11.5-15.5) % Plt Count (150-450) k/uL Neutrophils % % Lymphocytes % % Monocytes % % Eosinophils % % Basophils % % Neutrophils # (1.3-7.7) k/uL Lymphocytes # (1.0-4.8) k/uL Monocytes # (0-1.0) k/uL Eosinophils # (0-0.7) k/uL Basophils # (0-0.2) k/uL PT 10.1 (9.0-12.0) sec INR 1.0 (<1.2) APTT 22.4 (22.0-30.0) sec Sodium (137-145) mmol/L Potassium (3.5-5.1) mmol/L Chloride (98-107) mmol/L Carbon Dioxide (22-30) mmol/L Anion Gap mmol/L BUN (7-17) mg/dL Creatinine (0.52-1.04) mg/dL Est GFR (MDRD) Af Amer (>60 ml/min/1.73 sqM) Est GFR (MDRD) Non-Af (>60 ml/min/1.73 sqM) Glucose (74-99) mg/dL Calcium (8.4-10.2) mg/dL Total Bilirubin (0.2-1.3) mg/dL AST (14-36) U/L ALT (9-52) U/L Alkaline Phosphatase (38-126) U/L Total Protein (6.3-8.2) g/dL Albumin (3.5-5.0) g/dL Urine Color Yellow Urine Appearance Cloudy H (Clear) Urine pH 7.5 (5.0-8.0) Ur Specific [place] 1.017 (1.001-1.035) Urine Protein Negative (Negative) Urine Glucose (UA) Negative (Negative) Urine Ketones Negative (Negative) Urine Blood Negative (Negative) Urine Nitrite Negative (Negative) Urine Bilirubin Negative (Negative) Urine Urobilinogen <2.0 (<2.0) mg/dL Ur Leukocyte Esterase Negative (Negative) Ur Squamous Epith Cells <1 (0-4) /hpf Amorphous Sediment Occasional H (None) /hpf Urine Bacteria Few H (None) /hpf Urine Mucus Rare H (None) /hpf Urine HCG, Qual (Not Detectd) - Radiology Data Radiology results: report reviewed Mild free fluid in the cul-de-sac. No adnexal mass. No evidence of ovarian torsion. Fluid is increased compared to old exam. Disposition Clinical Impression: Ruptured ovarian cyst Disposition: HOME SELF-CARE Condition: Good Instructions: Ovarian Cyst (ED) Additional Instructions: Follow-up with her primary care provider and BOBTAIL DRIVER. Return to emergency department if any alarming signs or symptoms occur. Prescriptions: HYDROcodone/APAP 5-325MG [Violet 5-325] 1 tab PO Q6HR PRN #15 tab PRN Reason: Pain Ondansetron Odt [Zofran Odt] 4 mg PO Q8HR PRN #12 tab PRN Reason: Nausea Referrals: Shaq Yanez MD [Primary Care Provider] - 1-2 days Time of Disposition: 22:53
[2017-03-06 21:14] LABS: ALT 27 U/L (9-52); AST 16 U/L (14-36); Alkaline Phosphatase 56 U/L (38-126); Anion Gap 11 mmol/L; Blood Urea Nitrogen 14 mg/dL (7-17); Calcium 9.5 mg/dL (8.4-10.2); Carbon Dioxide 21 mmol/L (22-30); Chloride 106 mmol/L (98-107); Glucose 112 mg/dL (74-99); Non-African American GFR(MDRD) >60 (>60 ml/min/1.73 sqM); Sodium 138 mmol/L (137-145); Total Bilirubin 0.9 mg/dL (0.2-1.3); Total Protein 6.6 g/dL (6.3-8.2)
[2017-03-06 21:31] LABS: Partial Thromboplastin Time 22.4 sec (22.0-30.0); Prothrombin Time 10.1 sec (9.0-12.0)
--- NOTE | 2017-03-06 21:48 | US ---
EXAMINATION TYPE: US transvaginal DATE OF EXAM: 03/06/2017 COMPARISON: 02/05/2017 CLINICAL HISTORY: Pain. TECHNIQUE: Transvaginal (TV) Date of LMP: 01/26/2017 EXAM MEASUREMENTS: Uterus: 8.1 x 4.5 x 6.4 cm Endometrial Stripe: 0.86 cm Right Ovary: 3.3 x 2.1 x 1.9 cm Left Ovary: 3.6 x 2.6 x 3.3 cm 1. Uterus: Anteverted wnl 2. Endometrium: wnl 3. Right Ovary: wnl 4. Left Ovary: wnl Spectral, color and waveform doppler imaging shows good arterial and venous flow within the ovaries ; there is no evidence for ovarian torsion. 5. Bilateral Adnexa: wnl 6. Posterior cul-de-sac: Fluid visualized IMPRESSION: Mild free fluid in the cul-de-sac. No adnexal mass. No evidence of ovarian torsion. Fluid is increased compared to old exam.
[2017-03-06] MEDS ORDERED: ACET/COD 300 MG/30 MG STARTER PACK 6 TAB BTL PO STA (22:59)
[2017-03-06] MEDS ORDERED: ONDANSETRON 4 MG ODT STARTER PACK 2 TAB BTL PO STA (22:59)
[2017-03-06 23:07] VITALS: BP 119/78; PULSE 90; RESP 20; TEMP 98.2
== END 2017-03-06 23:07 | disposition home or self-care (01) ==
LOC: EC 20:23
DX: N83.209 Unspecified ovarian cyst, unspecified side (principal); F17.200 Nicotine dependence, unspecified, uncomplicated; Z84.2 Family history of other diseases of the genitourinary system
CPT/HCPCS: 99285 ×2; 96374 ×2; 96375 ×3; 96361 ×3; 36415; 80053; 87591; 87491; 85025; 85610; 85730; 81001; 81025; 87808; 87070; 93975; 76830; J2270; J2405; J1885; S0119; 87205

== ENCOUNTER 2017-06-15 16:23 | Emergency (ER) | payer OTHER ==
[2017-06-15 16:30] VITALS: BP 132/64; PULSE 82; RESP 16; TEMP 97.5
--- NOTE | 2017-06-15 16:35 | ED ---
General Adult HPI - General Chief complaint: Extremity Injury, Upper Stated complaint: Right Hand Injury Time Seen by Provider: 06/15/17 16:30 Source: patient, RN notes reviewed Mode of arrival: ambulatory Limitations: no limitations - History of Present Illness Initial comments: 21 yo female presents to the ER with cc of right hand pain. Patient states about 2 days ago she punched a dryer. Patient states she's continued of pain to the right hand and swelling. Patient states that she hasn't had any nausea or vomiting with this. Patient denies any other injury from the incident. Patient states it has no other complaints.Patient denies any recent fever, chills, shortness of breath, chest pain, back pain, abdominal pain, nausea vomiting, numbness or tingling, dysuria or hematuria, constipation or diarrhea, headaches or visual changes, or any other current symptoms. - Related Data Home Medications Medication Instructions Recorded Confirmed Dm/Acetaminophen/Doxylamine [Vicks 30 ml PO HS PRN 03/23/17 03/23/17 Nyquil Cold & Flu Liquid] Phenylephrine/Dm/Acetaminop/GG 5 ml PO Q4H PRN 03/23/17 03/23/17 [Vicks Dayquil Severe Cold-Flu] Previous Rx's Medication Instructions Recorded Amoxicillin 500 mg PO Q12HR #20 cap 03/23/17 Allergies Allergy/AdvReac Type Severity Reaction Status Date / Time No Known Allergies Allergy Verified 06/15/17 16:30 Review of Systems ROS Statement: Those systems with pertinent positive or pertinent negative responses have been documented in the HPI. ROS Other: All systems not noted in ROS Statement are negative. Past Medical History Past Medical History: Seizure Disorder Additional Past Medical History / Comment(s): ovarian cysts, HYPOGLYCEMIC, CONCUSSION IN PAST WITH FIRST SEIZURE SHE FELL. MIGRAINES, SEASONAL ALLERGIES/ SINUS, KIDNEYS STONE/UTI, ECZEMA, FX TO [place] ANKLE/WRISTS-NO SX History of Any Multi-Drug Resistant Organisms: MRSA Date of last positivie culture/infection: 2005 MDRO Source:: R cheek Past Surgical History: No Surgical Hx Reported Additional Past Surgical History / Comment(s): Patient had a renal stent placed Past Anesthesia/Blood Transfusion Reactions: No Reported Reaction Additional Past Anesthesia/Blood Transfusion Reaction / Comment(s): WITH PAST DENTAL WORK-NUMBED MOUTH -NO REACTION TO MEDS Past Psychological History: No Psychological Hx Reported Smoking Status: Former smoker Past Alcohol Use History: None Reported Past Drug Use History: Marijuana - Past Family History Mother Family Medical History: Osteoarthritis (OA) Additional Family Medical History / Comment(s): POLYCYSTIC OVARY DISEASE, HYPOGLYCEMIA, BONE SPURS, HERNIATED DISCS Father Family Medical History: Asthma Additional Family Medical History / Comment(s): HERNIATED DISCS/FUSIONS, HYPOGLYCEMIA General Exam - General Exam Comments Initial Comments: General: The patient is awake and alert, in no distress, and does not appear acutely ill. Neck: The neck is supple, there is no tenderness. Cardiovascular: There is a regular rate and rhythm. No murmur, rub or gallop is appreciated. Respiratory: Lungs are clear to auscultation, respirations are non-labored, breath sounds are equal. No wheezes, stridor, rales, or rhonchi. Musculoskeletal: sensation intact with 2+ pulses throughout the right upper extremity. Full rangemotion of the right wrist. Patient has a swelling between the third and fourth metacarpal with an associated ecchymosis. Tenderness to touch. Patient has good range of motion. Full range of motion of the digits throughout. Neurological: CN II-XII intact, There are no obvious motor or sensory deficits. Coordination appears grossly intact. Speech is normal. Skin: Skin is warm and dry and no rashes or lesions are noted. Psychiatric: Normal mood and affect. Limitations: no limitations Course Vital Signs 06/15/17 16:26 Temperature 97.5 F L Pulse Rate 82 Respiratory 16 Rate Blood Pressure 132/64 O2 Sat by Pulse 98 Oximetry Medical Decision Making - Medical Decision Making 21-year-old female presents for right hand pain after punching a dryer.at this time x-ray is reviewed that does not show any fracture or dislocation. This time we discussed right hand contusion. We discussed Motrin Tylenol for pain and ice. We discussed return parameters, Follow-up and all questions. Patient stated that she understood and family and her in agreement this plan. They will be discharged. - Radiology Data Radiology results: report reviewed, image reviewed Disposition Clinical Impression: Contusion of right hand Disposition: HOME SELF-CARE Condition: Stable Instructions: Contusion in Adults (ED) Additional Instructions: Please use medication as discussed. Please follow up with family doctor if symptoms have not improved over the next two days. Please return to the emergency room if your symptoms increase or worsen or for any other concerns. Referrals: Shaq Yanez MD [Primary Care Provider] - 1-2 days Time of Disposition: 16:51
--- NOTE | 2017-06-15 16:50 | XR ---
EXAMINATION TYPE: XR hand complete RT DATE OF EXAM: 06/15/2017 COMPARISON: NONE HISTORY: Pain and swelling TECHNIQUE: 3 views FINDINGS: I see no fracture nor dislocation. Joint spaces are normal. Metacarpals are intact. IMPRESSION: Negative right hand exam. No change.
== END 2017-06-15 16:55 | disposition home or self-care (01) ==
LOC: EC 16:23
DX: S60.221A Contusion of right hand, initial encounter (principal); Z86.14 Personal history of Methicillin resistant Staphylococcus aureus infection; Z87.891 Personal history of nicotine dependence; W22.8XXA Striking against or struck by other objects, initial encounter
CPT/HCPCS: 99283

== ENCOUNTER 2017-08-05 10:14 | Emergency (ER) | payer OTHER ==
[2017-08-05] MEDS ORDERED: ONDANSETRON 4 MG/2 ML VIAL IVP STA (11:40)
[2017-08-05] MEDS ORDERED: SODIUM CHLORIDE 0.9% 1,000 ML IV ONE (11:41)
--- NOTE | 2017-08-05 11:43 | ED ---
General Adult HPI - General Chief complaint: Seizure Stated complaint: Seizure Time Seen by Provider: 08/05/17 10:15 Source: patient, RN notes reviewed Mode of arrival: wheelchair Limitations: no limitations - History of Present Illness Initial comments: This is a 22-year-old female who presents emergency room complaining that she was out drinking last night and she went home and ever since then she has not been able stop vomiting. Patient didn't think she drank that much. Patient also states she had some diarrhea this morning as well. Patient denies any fever chills per patient denies abdominal pain. Patient denies chest pain difficult breathing shortness of breath. Patient denies any dysuria hematuria urinary frequency. Patient states she might of had a seizure when she came to the hospital. Patient states she kind of collapsed when she came in the hospital and was shaking for a while. Patient remembers the whole event and staff that were witnessed it stated that she was alert and oriented as soon as the short lived 20 seconds of shaking stopped - Related Data Home Medications Medication Instructions Recorded Confirmed No Known Home Medications [No 08/05/17 08/05/17 Known Home Medications] Allergies Allergy/AdvReac Type Severity Reaction Status Date / Time No Known Allergies Allergy Verified 08/05/17 10:49 Review of Systems ROS Statement: Those systems with pertinent positive or pertinent negative responses have been documented in the HPI. ROS Other: All systems not noted in ROS Statement are negative. Past Medical History Past Medical History: Seizure Disorder Additional Past Medical History / Comment(s): ovarian cysts, HYPOGLYCEMIC, CONCUSSION IN PAST WITH FIRST SEIZURE SHE FELL. MIGRAINES, SEASONAL ALLERGIES/ SINUS, KIDNEYS STONE/UTI, ECZEMA, FX TO DALTON ANKLE/WRISTS-NO SX History of Any Multi-Drug Resistant Organisms: MRSA Date of last positivie culture/infection: 2005 MDRO Source:: R cheek Past Surgical History: No Surgical Hx Reported Additional Past Surgical History / Comment(s): Patient had a renal stent placed Past Anesthesia/Blood Transfusion Reactions: No Reported Reaction Additional Past Anesthesia/Blood Transfusion Reaction / Comment(s): WITH PAST DENTAL WORK-NUMBED MOUTH -NO REACTION TO MEDS Past Psychological History: No Psychological Hx Reported Smoking Status: Former smoker Past Alcohol Use History: None Reported Past Drug Use History: Marijuana - Past Family History Mother Family Medical History: Osteoarthritis (OA) Additional Family Medical History / Comment(s): POLYCYSTIC OVARY DISEASE, HYPOGLYCEMIA, BONE SPURS, HERNIATED DISCS Father Family Medical History: Asthma Additional Family Medical History / Comment(s): HERNIATED DISCS/FUSIONS, HYPOGLYCEMIA General Exam - General Exam Comments Initial Comments: GENERAL: Patient is well-developed and well-nourished. Patient is nontoxic and well- hydrated and is in mild distress. ENT: Neck is soft and supple. No significant lymphadenopathy is noted. Oropharynx is clear. Moist mucous membranes. Neck has full range of motion without eliciting any pain. EYES: The sclera were anicteric and conjunctiva were pink and moist. Extraocular movements were intact and pupils were equal round and reactive to light. Eyelids were unremarkable. PULMONARY: Unlabored respirations. Good breath sounds bilaterally. No audible rales rhonchi or wheezing was noted. CARDIOVASCULAR: There is a regular rate and rhythm without any murmurs gallops or rubs. ABDOMEN: Soft and nontender with normal bowel sounds. SKIN: Skin is clear with no lesions or rashes and otherwise unremarkable. NEUROLOGIC: Patient is alert and oriented x3. Cranial nerves II through XII are grossly intact. Motor and sensory are also intact. Normal speech, volume and content. Symmetrical smile. MUSCULOSKELETAL: Normal extremities with adequate strength and full range of motion. LYMPHATICS: No significant lymphadenopathy is noted PSYCHIATRIC: Normal psychiatric evaluation. Limitations: no limitations Course Vital Signs 08/05/17 10:15 Pulse Rate 72 Respiratory 18 Rate Blood Pressure 122/84 O2 Sat by Pulse 99 Oximetry Medical Decision Making - Medical Decision Making I will back into reevaluate the patient. She had no abdominal pain she has not vomited in the emergency department. And the patient stated that she was feeling considerably better. Patient did have an elevated white count because she had no pain no fever and felt considerably better I discharged her home. I gave her instructions to return if there is pain or she has any fever. - Lab Data Result diagrams: 08/05/17 11:55 08/05/17 11:55 Lab Results 08/05/17 08/05/17 Range/Units 11:55 11:55 WBC 19.4 H (3.8-10.6) k/uL RBC 4.85 (3.80-5.40) m/uL Hgb 14.4 (11.4-16.0) gm/dL Hct 42.7 (34.0-46.0) % MCV 88.1 (80.0-100.0) fL MCH 29.7 (25.0-35.0) pg MCHC 33.7 (31.0-37.0) g/dL RDW 12.4 (11.5-15.5) % Plt Count 418 (150-450) k/uL Neutrophils % 90 % Lymphocytes % 6 % Monocytes % 4 % Eosinophils % 0 % Basophils % 0 % Neutrophils # 17.3 H (1.3-7.7) k/uL Lymphocytes # 1.2 (1.0-4.8) k/uL Monocytes # 0.7 (0-1.0) k/uL Eosinophils # 0.0 (0-0.7) k/uL Basophils # 0.0 (0-0.2) k/uL Sodium 147 H (137-145) mmol/L Potassium 4.5 (3.5-5.1) mmol/L Chloride 107 (98-107) mmol/L Carbon Dioxide 22 (22-30) mmol/L Anion Gap 18 mmol/L BUN 16 (7-17) mg/dL Creatinine 0.69 (0.52-1.04) mg/dL Est GFR (CKD-EPI)AfAm >90 (>60 ml/min/1.73 sqM) Est GFR (CKD-EPI)NonAf >90 (>60 ml/min/1.73 sqM) Glucose 103 H (74-99) mg/dL Calcium 10.4 H (8.4-10.2) mg/dL Total Bilirubin 1.2 (0.2-1.3) mg/dL AST 24 (14-36) U/L ALT 25 (9-52) U/L Alkaline Phosphatase 78 (38-126) U/L Total Protein 8.1 (6.3-8.2) g/dL Albumin 5.1 H (3.5-5.0) g/dL Serum Alcohol <10 mg/dL Disposition Clinical Impression: Gastroenteritis Disposition: HOME SELF-CARE Condition: Good Instructions: Gastroenteritis (ED) Referrals: Shaq Yanez MD [Primary Care Provider] - 1-2 days Time of Disposition: 12:56
[2017-08-05 12:15] LABS: Basophils % (A) 0 %; Eosinophils % (A) 0 %; HCT 42.7 % (34.0-46.0); HGB 14.4 gm/dL (11.4-16.0); Lymphocytes # (A) 1.2 k/uL (1.0-4.8); Lymphocytes % (A) 6 %; MCH 29.7 pg (25.0-35.0); MCHC 33.7 g/dL (31.0-37.0); MCV 88.1 fL (80.0-100.0); Mean Platelet Volume 6.5; Monocytes # (A) 0.7 k/uL (0-1.0); Monocytes % (A) 4 %; Neutrophils # (A) 17.3 k/uL (1.3-7.7); Neutrophils % (A) 90 %; Platelet Count 418 k/uL (150-450); RBC 4.85 m/uL (3.80-5.40); RDW 12.4 % (11.5-15.5); WBC 19.4 k/uL (3.8-10.6)
[2017-08-05 12:23] LABS: ALT 25 U/L (9-52); AST 24 U/L (14-36); Albumin 5.1 g/dL (3.5-5.0); Alcohol <10 mg/dL; Alkaline Phosphatase 78 U/L (38-126); Anion Gap 18 mmol/L; Blood Urea Nitrogen 16 mg/dL (7-17); Calcium 10.4 mg/dL (8.4-10.2); Carbon Dioxide 22 mmol/L (22-30); Chloride 107 mmol/L (98-107); Glucose 103 mg/dL (74-99); Potassium 4.5 mmol/L (3.5-5.1); Sodium 147 mmol/L (137-145); Total Bilirubin 1.2 mg/dL (0.2-1.3); Total Protein 8.1 g/dL (6.3-8.2)
[2017-08-05] MEDS ORDERED: ONDANSETRON 4 MG ODT STARTER PACK 2 TAB BTL PO STA (12:56)
[2017-08-05 13:01] VITALS: BP 131/84; PULSE 76; RESP 16; TEMP 98.6
== END 2017-08-05 13:10 | disposition home or self-care (01) ==
LOC: EC 10:14
DX: K52.9 Noninfective gastroenteritis and colitis, unspecified (principal); R56.9 Unspecified convulsions; Z87.42 Personal history of other diseases of the female genital tract; Z86.14 Personal history of Methicillin resistant Staphylococcus aureus infection; Z87.891 Personal history of nicotine dependence
CPT/HCPCS: 36415; 80053; 85025; 80320; 99284; 96374; 96361; J2405; S0119

== ENCOUNTER 2019-03-03 17:02 | Emergency (ER) | payer OTHER ==
[2019-03-03 17:09] VITALS: BP 118/77; PULSE 71; RESP 18; TEMP 98.3
[2019-03-03] MEDS ORDERED: CEPHALEXIN 500MG STARTER PACK 4 CAP BTL PO STA (17:42)
--- NOTE | 2019-03-03 17:48 | ED ---
Skin/Abscess/FB HPI - General Chief complaint: Skin/Abscess/Foreign Body Stated complaint: Bee sting on hand Time Seen by Provider: 03/03/19 17:11 Source: patient Mode of arrival: ambulatory Limitations: no limitations - History of Present Illness Initial comments: 23-year-old female presents emergency department for possible hand infection. Patient states she started by a bee in the dorsum the right hand yesterday at 2 PM. Patient states she has had redness since. Patient's been taking Benadryl. She states symptoms persist. Patient denies like symptoms or fevers. Patient has a swelling of the fingers of dictations range of motion at the digits she denies any numbness tingling or loss sensation or forced flexed position of the hand. Remaining review systems negative. Upon arrival patient appears well no signs of acute distress. - Related Data Home Medications Medication Instructions Recorded Confirmed diphenhydrAMINE HCL [Benadryl] 25 mg PO ONCE PRN 03/03/19 03/03/19 Previous Rx's Medication Instructions Recorded Cephalexin [Keflex] 500 mg PO Q6HR 7 Days #28 cap 03/03/19 Allergies Allergy/AdvReac Type Severity Reaction Status Date / Time No Known Allergies Allergy Verified 03/03/19 17:39 Review of Systems ROS Statement: Those systems with pertinent positive or pertinent negative responses have been documented in the HPI. ROS Other: All systems not noted in ROS Statement are negative. Past Medical History Past Medical History: Seizure Disorder Additional Past Medical History / Comment(s): ovarian cysts, HYPOGLYCEMIC, CONCUSSION IN PAST WITH FIRST SEIZURE SHE FELL. MIGRAINES, SEASONAL ALLERGIES/SINUS, KIDNEYS STONE/UTI, ECZEMA, FX TO DALTON ANKLE/WRISTS-NO SX History of Any Multi-Drug Resistant Organisms: MRSA Date of last positivie culture/infection: 2005 MDRO Source:: R cheek Past Surgical History: No Surgical Hx Reported Additional Past Surgical History / Comment(s): Patient had a renal stent placed Past Anesthesia/Blood Transfusion Reactions: No Reported Reaction Additional Past Anesthesia/Blood Transfusion Reaction / Comment(s): WITH PAST DENTAL WORK-NUMBED MOUTH -NO REACTION TO MEDS Past Psychological History: No Psychological Hx Reported Smoking Status: Former smoker Past Alcohol Use History: None Reported Past Drug Use History: Marijuana - Past Family History Mother Family Medical History: Osteoarthritis (OA) Additional Family Medical History / Comment(s): POLYCYSTIC OVARY DISEASE,HYPOGLYCEMIA, BONE SPURS, HERNIATED DISCS Father Family Medical History: Asthma Additional Family Medical History / Comment(s): HERNIATED DISCS/FUSIONS, HYPOGLYCEMIA General Exam - General Exam Comments Initial Comments: General: The patient is awake and alert, in no distress, and does not appear acutely ill. Eye: Pupils are equal, round and reactive to light, extra-ocular movements are intact. No nystagmus. There is normal conjunctiva bilaterally. No signs of icterus. Cardiovascular: There is a regular rate and rhythm. No murmur, rub or gallop is appreciated. Respiratory: Lungs are clear to auscultation, respirations are non-labored, breath sounds are equal. No wheezes, stridor, rales, or rhonchi. Musculoskeletal: Normal ROM, no tenderness. Strength 5/5. Sensation intact. Pulses equal bilaterally 2+. Neurological: A&O x 3. CN II-XII intact grossly, There are no obvious motor or sensory deficits. Coordination appears grossly intact. Speech is normal. Skin: Skin is warm and dry and no rashes. Small break in the skin of the dorsum of the right hand no palpable foreign body. Patient has slight soft tissue swelling of the right hand dorsum and warmth to palpation. Psychiatric: Cooperative, appropriate mood & affect, normal judgment. Limitations: no limitations Course Vital Signs 03/03/19 03/03/19 17:07 18:11 Temperature 98.3 F 98.3 F Pulse Rate 71 71 Respiratory 18 18 Rate Blood Pressure 118/77 118/77 O2 Sat by Pulse 99 99 Oximetry Medical Decision Making - Medical Decision Making 23-year-old female presents emergency department for evaluation of possible infection. Patient stung by a bee yesterday. There appears to be redness at the site of sting. No foreign body. This is most likely a a localized reaction to the timeframe. However cannot rule out a developing cellulitis. Patient be started on Keflex denies . Patient denies any other complaints or signs of flexor tenosynovitis. Return parameters were discussed the patient was discharged appearing well to discuss the case by attending provider. Disposition Clinical Impression: Insect bite, Cellulitis Disposition: HOME SELF-CARE Condition: Good Instructions (If sedation given, give patient instructions): Cellulitis (ED), Insect Bite or Sting (ED) Additional Instructions: Please use medication as discussed. Please follow-up with family doctor in the next 2 days. Please return to emergency room if the symptoms increase or worsen or for any other concerns. Prescriptions: Cephalexin [Keflex] 500 mg PO Q6HR 7 Days #28 cap Is patient prescribed a controlled substance at d/c from ED?: No Referrals: Shaq Yanez MD [Primary Care Provider] - 1-2 days Time of Disposition: 17:47
== END 2019-03-03 18:11 | disposition home or self-care (01) ==
LOC: EC 17:02
DX: L03.113 Cellulitis of right upper limb (principal); T63.441A Toxic effect of venom of bees, accidental (unintentional), initial encounter; Z87.891 Personal history of nicotine dependence; Z86.14 Personal history of Methicillin resistant Staphylococcus aureus infection; Y92.89 Other specified places as the place of occurrence of the external cause
CPT/HCPCS: 99282

== ENCOUNTER 2020-05-23 10:53 | Emergency (ER) | payer OTHER ==
[2020-05-23 11:06] VITALS: BP 135/82; PULSE 83; RESP 18; TEMP 98.8
--- NOTE | 2020-05-23 11:18 | ED ---
General Adult HPI - General Chief complaint: Extremity Injury, Upper Stated complaint: Arm Injury Time Seen by Provider: 05/23/20 11:08 Source: patient, RN notes reviewed Mode of arrival: ambulatory Limitations: physical limitation - History of Present Illness Initial comments: Patient is a pleasant 24-year-old female presenting to the emergency Department with right upper arm injury. Incident occurred yesterday. Patient was walking down steps without much traction on her boots when she slipped. Patient tried to catch herself using her right arm. Patient does have discomfort of her right upper arm since that time. Discomfort is greatly increased with any movement. No other area of injury. No head injury or loss of consciousness. No neck or back pain. No chest pain or dyspnea. No abdominal pain. Patient states lifting things with her right arm increases the discomfort, especially near the upper arm. - Related Data Home Medications Medication Instructions Recorded Confirmed diphenhydrAMINE HCL [Benadryl] 25 mg PO ONCE PRN 03/03/19 03/03/19 Previous Rx's Medication Instructions Recorded Cephalexin [Keflex] 500 mg PO Q6HR 7 Days #28 cap 03/03/19 Cyclobenzaprine [Flexeril] 10 mg PO TID PRN #12 tablet 05/23/20 Ibuprofen [Motrin] 600 mg PO Q6HR PRN #20 tab 05/23/20 Allergies Allergy/AdvReac Type Severity Reaction Status Date / Time No Known Allergies Allergy Verified 05/23/20 11:06 Review of Systems ROS Statement: Those systems with pertinent positive or pertinent negative responses have been documented in the HPI. ROS Other: All systems not noted in ROS Statement are negative. Constitutional: Denies: fever Eyes: Denies: eye pain ENT: Denies: ear pain Respiratory: Denies: cough Cardiovascular: Denies: chest pain Endocrine: Denies: fatigue Gastrointestinal: Denies: abdominal pain Genitourinary: Denies: dysuria Musculoskeletal: Reports: as per HPI. Denies: back pain Skin: Denies: rash Neurological: Denies: headache Past Medical History Past Medical History: Seizure Disorder Additional Past Medical History / Comment(s): ovarian cysts, HYPOGLYCEMIC, CONCUSSION IN PAST WITH FIRST SEIZURE SHE FELL. MIGRAINES, SEASONAL ALLERGIES/SINUS, KIDNEYS STONE/UTI, ECZEMA, FX TO DALTON ANKLE/WRISTS-NO SX History of Any Multi-Drug Resistant Organisms: MRSA Date of last positivie culture/infection: 2005 MDRO Source:: R cheek Past Surgical History: No Surgical Hx Reported Additional Past Surgical History / Comment(s): Patient had a renal stent placed Past Anesthesia/Blood Transfusion Reactions: No Reported Reaction Additional Past Anesthesia/Blood Transfusion Reaction / Comment(s): WITH PAST DENTAL WORK-NUMBED MOUTH -NO REACTION TO MEDS Past Psychological History: No Psychological Hx Reported Smoking Status: Current every day smoker Past Alcohol Use History: None Reported Past Drug Use History: Marijuana - Past Family History Mother Family Medical History: Osteoarthritis (OA) Additional Family Medical History / Comment(s): POLYCYSTIC OVARY DISEASE,HYPOGLYCEMIA, BONE SPURS, HERNIATED DISCS Father Family Medical History: Asthma Additional Family Medical History / Comment(s): HERNIATED DISCS/FUSIONS, HYPOGLYCEMIA General Exam Limitations: physical limitation General appearance: alert, in no apparent distress Head exam: Present: atraumatic, normocephalic Eye exam: Present: normal appearance Neck exam: Present: normal inspection. Absent: tenderness Respiratory exam: Present: normal lung sounds bilaterally Cardiovascular Exam: Present: regular rate, normal rhythm Expanded Peripheral pulses: 2+: Radial (R) GI/Abdominal exam: Present: soft. Absent: tenderness Extremities exam: Present: tenderness (Mild tenderness right upper arm, mostly near the area of the biceps insertion superiorly), other (Range of motion at the right shoulder limited secondary to pain. Distally the extremity is neurovascularly intact. Good strength with chef de froid. Cap refill less than 2 seconds. Sensation intact. Patient does have strength with flexion of the bicep however it does induce pain.) Back exam: Present: normal inspection. Absent: vertebral tenderness Neurological exam: Present: alert. Absent: motor sensory deficit Psychiatric exam: Present: normal affect, normal mood Skin exam: Present: normal color Course Vital Signs 05/23/20 11:04 Temperature 98.8 F Pulse Rate 83 Respiratory 18 Rate Blood Pressure 135/82 O2 Sat by Pulse 99 Oximetry Medical Decision Making - Medical Decision Making Patient reevaluated. Patient and family updated. - Radiology Data Radiology results: image reviewed (X-ray right humerus reveals no acute process) Disposition Clinical Impression: Strain of right biceps tendon Disposition: HOME SELF-CARE Condition: Stable Instructions (If sedation given, give patient instructions): Shoulder Pain (ED) Additional Instructions: Please follow-up with orthopedics in the next day or 2 for recheck. Ice to affected area. Please also follow-up with primary care physician. Return for increased pain, swelling, arm problems or weakness, worsening symptoms or other concerns. Prescription for Motrin 600 and muscle relaxer has been sent to your pharmacy. Tiffanie on Prescriptions: Cyclobenzaprine [Flexeril] 10 mg PO TID PRN #12 tablet PRN Reason: Pain Ibuprofen [Motrin] 600 mg PO Q6HR PRN #20 tab PRN Reason: Pain Is patient prescribed a controlled substance at d/c from ED?: No Referrals: Alvarez Hodgson DO [Doctor of Osteopathic Medicine] - 1-2 days Yannick Becerril [STAFF PHYSICIAN] - 1-2 days Time of Disposition: 11:55
--- NOTE | 2020-05-23 11:32 | XR ---
EXAMINATION TYPE: XR humerus RT DATE OF EXAM: 05/23/2020 COMPARISON: NONE HISTORY: 24-year-old female right upper arm pain after injury, falling down stairs 2 days ago. TECHNIQUE: 2 views FINDINGS: No acute fracture. Shoulder and elbow articulations appear grossly intact. However, obliquely on the lateral view precludes assessment of elbow joint effusion. IMPRESSION: No acute osseous abnormality seen.
[2020-05-23] MEDS ORDERED: ACET/COD 300 MG/30 MG STARTER PACK 6 TAB BTL PO STA (11:53)
[2020-05-23] MEDS ORDERED: IBUPROFEN 600 MG STARTER PACK 4 TAB BTL PO STA (11:53)
== END 2020-05-23 12:07 | disposition home or self-care (01) ==
LOC: EC 10:53
DX: S46.211A Strain of muscle, fascia and tendon of other parts of biceps, right arm, initial encounter (principal); F17.200 Nicotine dependence, unspecified, uncomplicated; W10.9XXA Fall (on) (from) unspecified stairs and steps, initial encounter; Y93.01 Activity, walking, marching and hiking
CPT/HCPCS: 99283

== ENCOUNTER 2020-12-18 16:16 | Outpatient (CLI) | payer OTHER ==
[2020-12-18 16:37] LABS: Appearance,Urine Clear (Clear); Bilirubin,Urine Negative (Negative); Blood,Urine Negative (Negative); Color,Urine Yellow; Glucose,Urine (UA) 2+ (Negative); Ketones,Urine Negative (Negative); Leukocyte Esterase,Urine Negative (Negative); Nitrite,Urine Negative (Negative); PH, Urine 6.5 (5.0-8.0); Protein,Urine Trace (Negative); Specific Gravity,Urine 1.021 (1.001-1.035); Urobilinogen,Urine <2.0 mg/dL (<2.0)
[2020-12-18 17:14] LABS: Glucose,Whole Blood 112 mg/dL (75-99)
[2020-12-18 18:45] VITALS: BP 128/77; PULSE 105; RESP 18; TEMP 97.5
[2020-12-18] MEDS ORDERED: BETAMET ACET-BETAMETH SOD PHOS 6 MG/ML MDV IM SCH (19:00)
--- NOTE | 2020-12-19 08:35 | P.MSEPDOC ---
Presenting Problems - Arrival Data Date of Arrival on Unit: 12/18/20 Time of Arrival on Unit: 16:16 Mode of Transport: Ambulatory - Complaint OB-Reason for Admission/Chief Complaint: Possible Onset of Labor, Pain Comment: contraction/lower back/unsure if kidney pain from kidney stones started at 1300 7/10 Medical History - Information : 3 Para: 2 Term: 0 : 2 Abortions: Spontaneous or Elective: 0 Number of Living Children: 2 - Gestational Age Gestational Age by KETAN (wks/days): 34 Weeks and 2 Days - History Complications: Prior Review of Systems - Review of Systems Constitutional: No problems Breast: No problems ENT: No problems Cardiovascular: No problems Respiratory: No problems Gastrointestinal: No problems Genitourinary: No problems Musculoskeletal: No problems Neurological: No problems Skin: No problems Vital Signs - Temperature Temperature: 97.5 F Temperature Source: Temporal Artery Scan - Pulse Right Pulse Oximetery Pulse Rate: 105 Pulse Assessment Method: Pulse Oximetry - Respirations Respiratory Rate: 18 Oxygen Delivery Method: Room Air O2 Sat by Pulse Oximetry: 98 - Blood Pressure Right Arm Blood Pressure: 128/77 Blood Pressure Mean: 94 Blood Pressure Source: Automatic Cuff Medical Screen Scoring - Cervical Exam Dilation (cm): 1 Effacement (%): 50 Station: -3 Membranes: Intact - Uterine Contractions Frequency From (mins): 3 Frequency To (mins): 10 Duration From (seconds): 40 Duration To (seconds): 60 Intensity: Mild Resting: Soft to palpation - Assessment - Baby A Baseline FHR: 140 Heart Rate - NICHD Category: Category I (Normal) NST: Reactive Physician Notification - Physician Notified Physician Notified Date: 12/18/20 Physician Notified Time: 17:00 Physician: Dr Kumar New Order Received: Yes - Notification Comment Comment: sent ffn, rechecked cervix after 1 hour, cbg check, orally hydrated, recalled Dr Kumar at 1755 with findings, order to discharge patient. Maternal Triage Index - Maternal Triage Index Presenting for scheduled procedure w/no complaint: No - Stat/Priority 1 Stat Priority 1: No - Urgent/Priority 2 Urgent Priority 2: No - Prompt/Priority 3 Prompt Priority 3: Yes Criteria Met for Priority 3: signs of early labor 34 2/7 weeks gestation Disposition - Disposition OB Disposition: Discharge to home Discharge Date: 12/18/20 Discharge Time: 18:00 I agree with the RN Medical Screening Exam: Yes Case reviewed; plan agreed upon as documented in EMR&OBIX.: Yes Diagnosis: RELATED RENAL DISEASE, THIRD TRIMESTER
== END 2020-12-18 18:00 | disposition home or self-care (01) ==
LOC: FBPOP 16:16
PROVIDERS: ATTEND Obstetrics & Gynecology
DX: O26.833 Pregnancy related renal disease, third trimester (principal); Z3A.34 34 weeks gestation of pregnancy
CPT/HCPCS: 59025; 82731; 81003; G0463; 99213

== ENCOUNTER 2020-12-19 16:47 | Emergency (ER) | payer OTHER ==
[2020-12-19 16:57] VITALS: TEMP 98.6
[2020-12-19 17:22] LABS: Basophils % (A) 0 %; Eosinophils # (A) 0.2 k/uL (0-0.7); Eosinophils % (A) 2 %; HCT 32.9 % (34.0-46.0); HGB 11.3 gm/dL (11.4-16.0); Lymphocytes # (A) 1.6 k/uL (1.0-4.8); Lymphocytes % (A) 16 %; MCHC 34.4 g/dL (31.0-37.0); Mean Platelet Volume 6.8; Monocytes # (A) 0.5 k/uL (0-1.0); Monocytes % (A) 5 %; Neutrophils # (A) 7.9 k/uL (1.3-7.7); Neutrophils % (A) 76 %; Platelet Count 304 k/uL (150-450); RBC 3.66 m/uL (3.80-5.40); RDW 14.3 % (11.5-15.5); WBC 10.4 k/uL (3.8-10.6)
[2020-12-19] MEDS ORDERED: ACETAMINOPHEN TAB 500 MG TAB PO STA (17:25)
[2020-12-19 17:31] LABS: African American GFR (CKD) >90 (>60 ml/min/1.73 sqM); Anion Gap 10 mmol/L; Blood Urea Nitrogen 7 mg/dL (7-17); Calcium 9.4 mg/dL (8.4-10.2); Carbon Dioxide 18 mmol/L (22-30); Chloride 107 mmol/L (98-107); Glucose 116 mg/dL (74-99); Magnesium 1.7 mg/dL (1.6-2.3); Non-African American GFR(CKD) >90 (>60 ml/min/1.73 sqM); Potassium 4.1 mmol/L (3.5-5.1); Sodium 135 mmol/L (137-145)
--- NOTE | 2020-12-19 17:40 | ED ---
General Adult HPI - General Chief complaint: Seizure Stated complaint: seizures Time Seen by Provider: 12/19/20 16:53 Source: EMS Mode of arrival: EMS Limitations: no limitations - History of Present Illness Initial comments: Dictation was produced using imoji dictation software. please excuse any grammatical, word or spelling errors. Chief Complaint: 25-year-old female presents with seizures History of Present Illness: 25-year-old female she has extensive history of seizure disorder. She takes Keppra daily. She is [address] Reinoso for seizure management. Patient has any history of preeclampsia. She has seizures on a regular basis. Significant other at bedside reports that patient skipped seizures frequently on the order of approximately 1-2 every 2-3 days. Today she was brought to the emergency department because this time she had brief loss of consciousness. Patient does not recall having seizure today. Significant other reports that she had 3 episodes today. The third episode of today she lost consciousness and that's not typical of her usual symptoms. This prompted him to call EMS of patient given brought to the emergency room. Patient currently feels at baseline. She has no pain complaints. Her service center manager is based out [facility]. The ROS documented in this emergency department record has been reviewed and confirmed by me. Those systems with pertinent positive or negative responses have been documented in the HPI. All other systems are other negative and/or noncontributory. PHYSICAL EXAM: General Impression: Alert and oriented x3, not in acute distress HEENT: Normocephalic atraumatic, extra-ocular movements intact, pupils equal and reactive to light bilaterally, mucous membranes moist. Cardiovascular: Heart regular rate and rhythm Chest: Able to complete full sentences, no retractions, no tachypnea Abdomen: abdomen soft, non-tender, non-distended, no organomegaly, gravid uterus Musculoskeletal: Pulses present and equal in all extremities, no peripheral edema Motor: no focal deficits noted Neurological: CN II-XII grossly intact, no focal motor or sensory deficits noted Skin: Intact with no visualized rashes Psych: Normal affect and mood ED course: 25-year-old female presents after several episodes of seizure today. Patient has extensive history of seizure disorder. vital signs upon arrival shows heart rate of 103, respiratory signs within acceptable limits. Patient is not hypertensive. She does not have any symptoms of preeclampsia or eclampsia. Her seizures are likely secondary to her seizure disorder. Laboratory evaluation obtained. CBC is unremarkable. Metabolic panel shows mild acidosis without an anion gap. I from seizures. Patient had a witnessed seizure that was lasting for several seconds and resolved spontaneously without any medication here in our ER. Spoke with [facility] ER who got a hold of patient's OB and he recommended transfer to [facility]. Did speak with our neurologist Dr. Jasso who recommended 500 mg of Keppra, Keppra levels and 1 g of magnesium. Patient be transferred to [facility]. Case discussed with Dr. Francois is willing to accept patient care for urinary ER transfer. - Related Data Home Medications Medication Instructions Recorded Confirmed levETIRAcetam [Keppra] 500 mg PO Q12HR 12/18/20 12/18/20 Allergies Allergy/AdvReac Type Severity Reaction Status Date / Time No Known Allergies Allergy Verified 12/18/20 16:26 Review of Systems ROS Statement: Those systems with pertinent positive or pertinent negative responses have been documented in the HPI. ROS Other: All systems not noted in ROS Statement are negative. Past Medical History Past Medical History: Seizure Disorder Additional Past Medical History / Comment(s): ovarian cysts, HYPOGLYCEMIC, CONCUSSION IN PAST WITH FIRST SEIZURE SHE FELL. MIGRAINES, SEASONAL ALLERGIES/SINUS, KIDNEYS STONE/UTI, ECZEMA, FX TO DALTON ANKLE/WRISTS-NO SX History of Any Multi-Drug Resistant Organisms: None Reported, MRSA Date of last positivie culture/infection: 2005 MDRO Source:: R cheek Past Surgical History: No Surgical Hx Reported Additional Past Surgical History / Comment(s): Patient had a renal stent placed Past Anesthesia/Blood Transfusion Reactions: No Reported Reaction Additional Past Anesthesia/Blood Transfusion Reaction / Comment(s): WITH PAST DENTAL WORK-NUMBED MOUTH -NO REACTION TO MEDS Past Psychological History: No Psychological Hx Reported Smoking Status: Never smoker - Past Family History Mother Family Medical History: Osteoarthritis (OA) Additional Family Medical History / Comment(s): POLYCYSTIC OVARY DISEASE,HYPOGLYCEMIA, BONE SPURS, HERNIATED DISCS Father Family Medical History: Asthma Additional Family Medical History / Comment(s): HERNIATED DISCS/FUSIONS, HYPOGLYCEMIA General Exam Limitations: no limitations Course Vital Signs 12/19/20 12/19/20 12/19/20 16:47 16:55 17:00 Temperature 98.6 F Pulse Rate 103 H 101 H 99 Respiratory 16 16 16 Rate Blood Pressure 123/83 123/75 123/83 O2 Sat by Pulse 99 98 98 Oximetry 12/19/20 12/19/20 12/19/20 17:30 17:47 18:02 Temperature Pulse Rate 102 H 93 Respiratory 22 16 Rate Blood Pressure 120/71 113/69 O2 Sat by Pulse 96 98 98 Oximetry Medical Decision Making - Lab Data Result diagrams: 12/19/20 Unknown 12/19/20 17:24 Lab Results 12/19/20 12/19/20 Range/Units 17:24 Unknown WBC 10.4 (3.8-10.6) k/uL RBC 3.66 L (3.80-5.40) m/uL Hgb 11.3 L (11.4-16.0) gm/dL Hct 32.9 L (34.0-46.0) % MCV 90.0 (80.0-100.0) fL MCH 31.0 (25.0-35.0) pg MCHC 34.4 (31.0-37.0) g/dL RDW 14.3 (11.5-15.5) % Plt Count 304 (150-450) k/uL MPV 6.8 Neutrophils % 76 % Lymphocytes % 16 % Monocytes % 5 % Eosinophils % 2 % Basophils % 0 % Neutrophils # 7.9 H (1.3-7.7) k/uL Lymphocytes # 1.6 (1.0-4.8) k/uL Monocytes # 0.5 (0-1.0) k/uL Eosinophils # 0.2 (0-0.7) k/uL Basophils # 0.0 (0-0.2) k/uL Sodium 135 L (137-145) mmol/L Potassium 4.1 (3.5-5.1) mmol/L Chloride 107 (98-107) mmol/L Carbon Dioxide 18 L (22-30) mmol/L Anion Gap 10 mmol/L BUN 7 (7-17) mg/dL Creatinine 0.36 L (0.52-1.04) mg/dL Est GFR (CKD-EPI)AfAm >90 (>60 ml/min/1.73 sqM) Est GFR (CKD-EPI)NonAf >90 (>60 ml/min/1.73 sqM) Glucose 116 H (74-99) mg/dL Calcium 9.4 (8.4-10.2) mg/dL Magnesium 1.7 (1.6-2.3) mg/dL Disposition Clinical Impression: Seizure Disposition: OTHER INSTITUTION NOT DEFINED Condition: Fair Referrals: None,Stated [Primary Care Provider] - 1-2 days - Out of Hospital Transfer - Req. Specs Out of Hospital Transfer - Requested Specifics: Other Emergency Center ([facility]
[2020-12-19] MEDS ORDERED: SODIUM CHLORIDE 0.9% 1,000 ML IV STA (17:50)
[2020-12-19 18:02] VITALS: RESP 16
[2020-12-19] MEDS ORDERED: levETIRAcetam IV 500 MG in SODIUM CHLORIDE 0.9% 100 ML IVPB STA (18:07)
[2020-12-19] MEDS ORDERED: MAGNESIUM SULFATE-D5W PMX 1 GM in DEXTROSE/WATER 1 100ML.BAG IVPB SCH (18:30)
[2020-12-19 18:59] VITALS: BP 104/67; PULSE 82
== END 2020-12-19 19:19 | disposition other institution (70) ==
LOC: EC 16:47
DX: O99.353 Diseases of the nervous system complicating pregnancy, third trimester (principal); G40.909 Epilepsy, unspecified, not intractable, without status epilepticus; Z3A.34 34 weeks gestation of pregnancy; Z87.59 Personal history of other complications of pregnancy, childbirth and the puerperium
CPT/HCPCS: 36415; 80048; 80177; 83735; 85025; 96374; 96375; 96361; 99285; J3475; J1953

== ENCOUNTER 2021-10-10 18:43 | Emergency (ER) | payer OTHER ==
[2021-10-10 19:05] VITALS: RESP 18; TEMP 98.1
[2021-10-10] MEDS ORDERED: SODIUM CHLORIDE 0.9% 1,000 ML IV STA (19:10)
[2021-10-10] MEDS ORDERED: levETIRAcetam IV 2,000 MG in SODIUM CHLORIDE 0.9% 250 ML IVPB ONE (19:10)
[2021-10-10] MEDS ORDERED: ACETAMINOPHEN TAB 500 MG TAB PO STA (19:18)
--- NOTE | 2021-10-10 20:13 | ED ---
General Adult HPI - General Chief complaint: Seizure Stated complaint: Seizure Time Seen by Provider: 10/10/21 19:09 Source: patient, EMS, RN notes reviewed, old records reviewed Mode of arrival: EMS Limitations: no limitations - History of Present Illness Initial comments: Patient is a 26-year-old female who presents emergency Department with breakthro ugh seizure patient is a known history of seizure disorder on Keppra 1000 mg twice a day. She states she has been missing doses lately. This is due to increased stress at home as she has multiple children. She no she should be taking it. She states she has a full prescription. She has had 2-3 seizures over the last 2 days. Last occurred prior to arrival. Currently only complains of mild normal tension-like headache. Denies hitting her head. States she may have bitten her tongue. Otherwise is fully alert and oriented. His no other acute complaints at this time. Denies any fevers, chills, cough. Denies any urinary complaints. States she is not . - Related Data Home Medications Medication Instructions Recorded Confirmed levETIRAcetam [Keppra] 500 mg PO BID 12/18/20 12/19/20 Hydroxyprogesterone Caproat 250/Ml 250 mg IM TH 12/19/20 12/19/20 NIFEdipine [Procardia] 10 mg PO Q6H PRN 12/19/20 12/19/20 Allergies Allergy/AdvReac Type Severity Reaction Status Date / Time No Known Allergies Allergy Verified 12/19/20 19:15 Review of Systems ROS Statement: Those systems with pertinent positive or pertinent negative responses have been documented in the HPI. ROS Other: All systems not noted in ROS Statement are negative. Past Medical History Past Medical History: Seizure Disorder Additional Past Medical History / Comment(s): ovarian cysts, HYPOGLYCEMIC, CONCUSSION IN PAST WITH FIRST SEIZURE SHE FELL. MIGRAINES, SEASONAL ALLERGIES/SINUS, KIDNEYS STONE/UTI, ECZEMA, FX TO DALTON ANKLE/WRISTS-NO SX History of Any Multi-Drug Resistant Organisms: None Reported, MRSA Date of last positivie culture/infection: 2005 MDRO Source:: R cheek Past Surgical History: No Surgical Hx Reported Additional Past Surgical History / Comment(s): Patient had a renal stent placed Past Anesthesia/Blood Transfusion Reactions: No Reported Reaction Additional Past Anesthesia/Blood Transfusion Reaction / Comment(s): WITH PAST DENTAL WORK-NUMBED MOUTH -NO REACTION TO MEDS Past Psychological History: No Psychological Hx Reported Smoking Status: Never smoker - Past Family History Mother Family Medical History: Osteoarthritis (OA) Additional Family Medical History / Comment(s): POLYCYSTIC OVARY DISEASE,HYPOGLYCEMIA, BONE SPURS, HERNIATED DISCS Father Family Medical History: Asthma Additional Family Medical History / Comment(s): HERNIATED DISCS/FUSIONS, HYPOGLYCEMIA General Exam - General Exam Comments Initial Comments: General: Appears in no acute distress. HEAD: Normal with no signs of head trauma. EYES: PERRLA, EOMI, conjunctiva normal, no discharge. Pupils are 3 mm and equal bilaterally. ENT: Hearing grossly intact, normal oropharynx. RESPIRATORY: Clear breath sounds bilaterally. No wheezes, rales, or rhonchi. No increased work of breathing. No hypoxia. C/V: Regular rate and rhythm. S1 and S2 auscultated, no edema, peripheral pulses 2+ and intact throughout ABD: Abd is soft, nontender, nondistended EXT: Normal range of motion, no obvious deformity SKIN: No rashes or lesions observed on exposed skin. NEURO: Alert and oriented 4. Cranial nerves II through XII are intact. No focal sensory strength deficits. GCS of 15. NIH is 0. Limitations: no limitations Course Vital Signs 10/10/21 10/10/21 18:50 20:05 Temperature 98.1 F Pulse Rate 56 L 64 Respiratory 18 18 Rate Blood Pressure 135/95 117/89 O2 Sat by Pulse 99 98 Oximetry Medical Decision Making - Medical Decision Making Based on the patient's presentation and physical exam, I believe she likely experiencing breakthrough seizure secondary to medication noncompliance. She'll be given a dose of IV Keppra as well as IV fluids. Basic labs will be obtained as well. Seizure precautions were ordered. We will observe the patient for multiple hours to ensure she doesn't have another breakthrough seizure. She was in agreement this plan. I will give her a small dose of Tylenol for her mild tension headache. She does not appear to be postictal anymore. Patient was observed for over 2 hours here in the department and had no recurrent seizure episodes. She is fully alert and oriented at this time. Patient's laboratory studies were unremarkable including a normal urinalysis and negative test. Vital signs remained within normal limits and stable. I discussed with her as well as her family member at bedside her negative workup. I believe it is safe for her to be discharged home at this time. I did grief counsellor her on the importance of remaining compliant with her antiseizure medication. She states she will begin teaser seizure at more to attempt to remain compliant. She was in agreement with this plan. She does not require medication refills that she states she has 3 bottles at home. He did advise that she follow up with her neurologist in the next 1-3 days. I instructed the patient to follow up with their PCP in the next 3 days. I explained that the patient should return to the emergency department if they experience any worsening symptoms. Strict return precautions were discussed with the patient. The patient expressed understanding of these instructions. I answered all questions that the patient had. The patient was discharged home in good condition with their prescriptions and follow up information. - Lab Data Result diagrams: 10/10/21 19:53 10/10/21 19:53 Lab Results 10/10/21 10/10/21 10/10/21 Range/Units 19:53 19:53 20:01 WBC 10.3 (3.8-10.6) k/uL RBC 5.18 (3.80-5.40) m/uL Hgb 15.7 (11.4-16.0) gm/dL Hct 46.9 H (34.0-46.0) % MCV 90.6 (80.0-100.0) fL MCH 30.3 (25.0-35.0) pg MCHC 33.5 (31.0-37.0) g/dL RDW 13.1 (11.5-15.5) % Plt Count 422 (150-450) k/uL MPV 6.5 Neutrophils % 61 % Lymphocytes % 32 % Monocytes % 4 % Eosinophils % 1 % Basophils % 1 % Neutrophils # 6.3 (1.3-7.7) k/uL Lymphocytes # 3.3 (1.0-4.8) k/uL Monocytes # 0.4 (0-1.0) k/uL Eosinophils # 0.1 (0-0.7) k/uL Basophils # 0.1 (0-0.2) k/uL Sodium 142 (137-145) mmol/L Potassium 4.1 (3.5-5.1) mmol/L Chloride 106 (98-107) mmol/L Carbon Dioxide 24 (22-30) mmol/L Anion Gap 12 mmol/L BUN 9 (7-17) mg/dL Creatinine 0.79 (0.52-1.04) mg/dL Est GFR (CKD-EPI)AfAm >90 (>60 ml/min/1.73 sqM) Est GFR (CKD-EPI)NonAf >90 (>60 ml/min/1.73 sqM) Glucose 95 (74-99) mg/dL Calcium 10.3 H (8.4-10.2) mg/dL Urine Color Light Yellow Urine Appearance Cloudy H (Clear) Urine pH 6.5 (5.0-8.0) Ur Specific [place] 1.008 (1.001-1.035) Urine Protein Negative (Negative) Urine Glucose (UA) Negative (Negative) Urine Ketones Negative (Negative) Urine Blood Negative (Negative) Urine Nitrite Negative (Negative) Urine Bilirubin Negative (Negative) Urine Urobilinogen <2.0 (<2.0) mg/dL Ur Leukocyte Esterase Negative (Negative) Urine RBC <1 (0-5) /hpf Ur Squamous Epith Cells <1 (0-4) /hpf Amorphous Sediment Rare H (None) /hpf Urine Mucus Rare H (None) /hpf Urine HCG, Qual (Not Detectd) 10/10/21 Range/Units 20:01 WBC (3.8-10.6) k/uL RBC (3.80-5.40) m/uL Hgb (11.4-16.0) gm/dL Hct (34.0-46.0) % MCV (80.0-100.0) fL MCH (25.0-35.0) pg MCHC (31.0-37.0) g/dL RDW (11.5-15.5) % Plt Count (150-450) k/uL MPV Neutrophils % % Lymphocytes % % Monocytes % % Eosinophils % % Basophils % % Neutrophils # (1.3-7.7) k/uL Lymphocytes # (1.0-4.8) k/uL Monocytes # (0-1.0) k/uL Eosinophils # (0-0.7) k/uL Basophils # (0-0.2) k/uL Sodium (137-145) mmol/L Potassium (3.5-5.1) mmol/L Chloride (98-107) mmol/L Carbon Dioxide (22-30) mmol/L Anion Gap mmol/L BUN (7-17) mg/dL Creatinine (0.52-1.04) mg/dL Est GFR (CKD-EPI)AfAm (>60 ml/min/1.73 sqM) Est GFR (CKD-EPI)NonAf (>60 ml/min/1.73 sqM) Glucose (74-99) mg/dL Calcium (8.4-10.2) mg/dL Urine Color Urine Appearance (Clear) Urine pH (5.0-8.0) Ur Specific [place] (1.001-1.035) Urine Protein (Negative) Urine Glucose (UA) (Negative) Urine Ketones (Negative) Urine Blood (Negative) Urine Nitrite (Negative) Urine Bilirubin (Negative) Urine Urobilinogen (<2.0) mg/dL Ur Leukocyte Esterase (Negative) Urine RBC (0-5) /hpf Ur Squamous Epith Cells (0-4) /hpf Amorphous Sediment (None) /hpf Urine Mucus (None) /hpf Urine HCG, Qual Not Detected (Not Detectd) Disposition Clinical Impression: Breakthrough seizure, Noncompliance with medication regimen Disposition: HOME SELF-CARE Condition: Good Instructions (If sedation given, give patient instructions): Seizure/Epilepsy Discharge Instructions & Follow-Up Is patient prescribed a controlled substance at d/c from ED?: No Referrals: None,Stated [Primary Care Provider] - 1-2 days Mojgan Rahman MD [REFERRING] - 1-2 days Time of Disposition: 20:50
[2021-10-10 20:16] LABS: African American GFR (CKD) >90 (>60 ml/min/1.73 sqM); Anion Gap 12 mmol/L; Blood Urea Nitrogen 9 mg/dL (7-17); Calcium 10.3 mg/dL (8.4-10.2); Carbon Dioxide 24 mmol/L (22-30); Chloride 106 mmol/L (98-107); Glucose 95 mg/dL (74-99); Non-African American GFR(CKD) >90 (>60 ml/min/1.73 sqM); Potassium 4.1 mmol/L (3.5-5.1); Sodium 142 mmol/L (137-145)
[2021-10-10 20:18] LABS: Amorphous Sediment,Urine Rare /hpf; Appearance,Urine Cloudy (Clear); Bilirubin,Urine Negative (Negative); Blood,Urine Negative (Negative); Color,Urine Light Yellow; Glucose,Urine (UA) Negative (Negative); Ketones,Urine Negative (Negative); Leukocyte Esterase,Urine Negative (Negative); Mucus,Urine Rare /hpf; Nitrite,Urine Negative (Negative); PH, Urine 6.5 (5.0-8.0); Protein,Urine Negative (Negative); RBC,Urine <1 /hpf (0-5); Specific Gravity,Urine 1.008 (1.001-1.035); Squamous Epithelial Cell,Urine <1 /hpf (0-4); Urobilinogen,Urine <2.0 mg/dL (<2.0)
[2021-10-10 20:26] LABS: Basophils # (A) 0.1 k/uL (0-0.2); Basophils % (A) 1 %; Eosinophils # (A) 0.1 k/uL (0-0.7); Eosinophils % (A) 1 %; HCT 46.9 % (34.0-46.0); HGB 15.7 gm/dL (11.4-16.0); Lymphocytes # (A) 3.3 k/uL (1.0-4.8); Lymphocytes % (A) 32 %; MCH 30.3 pg (25.0-35.0); MCHC 33.5 g/dL (31.0-37.0); MCV 90.6 fL (80.0-100.0); Mean Platelet Volume 6.5; Monocytes # (A) 0.4 k/uL (0-1.0); Monocytes % (A) 4 %; Neutrophils # (A) 6.3 k/uL (1.3-7.7); Neutrophils % (A) 61 %; Platelet Count 422 k/uL (150-450); RBC 5.18 m/uL (3.80-5.40); RDW 13.1 % (11.5-15.5); WBC 10.3 k/uL (3.8-10.6)
[2021-10-10 21:40] VITALS: BP 120/83; PULSE 59
== END 2021-10-10 21:44 | disposition home or self-care (01) ==
LOC: EC 18:43
DX: G40.909 Epilepsy, unspecified, not intractable, without status epilepticus (principal); R51.9 Headache, unspecified; Z91.14 Patient's other noncompliance with medication regimen; Z79.899 Other long term (current) drug therapy
CPT/HCPCS: 36415; 80048; 85025; 81001; 81025; 99285; 96365; 96361; J1953

== ENCOUNTER 2021-11-01 14:42 | Emergency (ER) | payer OTHER ==
[2021-11-01 15:08] VITALS: BP 121/79; PULSE 88; RESP 20; TEMP 98.2
[2021-11-01] MEDS ORDERED: PROPARACAINE 0.5% OPHTH DROPS 15 ML BTL BOTH EYES STA (15:56)
[2021-11-01] MEDS ORDERED: FLUORESCEIN STRIPS 1 MG STRIP RIGHT EYE ONE (16:04)
[2021-11-01] MEDS ORDERED: DIPH,PERTUS(ACELL)TETVAC-LF 0.5 ML VIAL IM ONE (16:13)
[2021-11-01] MEDS ORDERED: ERYTHROMYCIN 5 MG/GM OPHTH OINT 3.5 GM TUBE RIGHT EYE SCH (16:15)
--- NOTE | 2021-11-01 16:16 | ED ---
General Adult HPI - General Chief complaint: Eye Problems Stated complaint: R eye injury recheck Time Seen by Provider: 11/01/21 15:55 Source: patient Mode of arrival: ambulatory Limitations: no limitations - History of Present Illness Initial comments: Dictation was produced using [employer] dictation software. please excuse any grammatical, word or spelling errors. Chief Complaint: 26-year-old female presents to the emergency Department with worsening eye symptoms History of Present Illness: Patient is a 18-year-old female 2 nights ago patient was scratched in her eye by a [id number]. She is going to when her 98-decas-rpy daughter inadvertently scratched in the right eye. The following day she went to the urgent care and was evaluated. She was told she had a corneal abrasion and provided a prescription for ofloxacin eyedrops. Patient does not wear eye contacts. She does wear glasses sometimes however. Patient states that she woke up this morning with eyelid inflammation, conjunctivitis and photophobia. She came in today because she feels like her symptoms are getting worse. She states that she tried to make an appointment with eye glass frame polisher however due to insurance issues she was not able to follow-up. The ROS documented in this emergency department record has been reviewed and confirmed by me. Those systems with pertinent positive or negative responses have been documented in the HPI. All other systems are other negative and/or noncontributory. PHYSICAL EXAM: General Impression: Alert and oriented x3, not in acute distress HEENT: Normocephalic atraumatic, extra-ocular movements intact, pupils equal and reactive to light bilaterally, mucous membranes moist. Ocular: Eyelid swelling, conjunctivitis, pleurisy and I testing shows small 1 x 1 mm corneal abrasion over the visual axis midline of the pupil. Upper and lower eyelids were everted showing no abnormalities Chest: Able to complete full sentences, no retractions, no tachypnea Motor: no focal deficits noted Neurological: CN II-XII grossly intact, no focal motor or sensory deficits noted Skin: Intact with no visualized rashes Psych: Normal affect and mood ED course: 26 y Old female presents emergency department for reevaluation of corneal abrasion. Vital signs upon arrival are within acceptable limits. Patient provided with proparacaine with immediate relief. Patient right eye is 20/200, left eye is 20/40, bilateral 20/50. Case is discussed with Dr. Cormier health information internship for ophthalmology who will see the patient tomorrow at 3:10 PM. Patient provided with erythromycin ointment. - Related Data Home Medications Medication Instructions Recorded Confirmed Albuterol Sulfate [Proair Hfa] 2 puff INHALATION RT-QID PRN 10/10/21 10/10/21 Mercedes 0.25-0.035 Mg 1 tab PO DAILY 10/10/21 10/10/21 levETIRAcetam [Keppra] 1,000 mg PO Q12HR 10/10/21 10/10/21 Allergies Allergy/AdvReac Type Severity Reaction Status Date / Time No Known Allergies Allergy Verified 11/01/21 15:07 Review of Systems ROS Statement: Those systems with pertinent positive or pertinent negative responses have been documented in the HPI. ROS Other: All systems not noted in ROS Statement are negative. Past Medical History Past Medical History: Seizure Disorder Additional Past Medical History / Comment(s): ovarian cysts, HYPOGLYCEMIC, CON CUSSION IN PAST WITH FIRST SEIZURE SHE FELL. MIGRAINES, SEASONAL ALLERGIES/SINUS, KIDNEYS STONE/UTI, ECZEMA, FX TO [place] ANKLE/WRISTS-NO SX History of Any Multi-Drug Resistant Organisms: None Reported, MRSA Date of last positivie culture/infection: 2005 MDRO Source:: R cheek Past Surgical History: No Surgical Hx Reported Additional Past Surgical History / Comment(s): Patient had a renal stent placed Past Anesthesia/Blood Transfusion Reactions: No Reported Reaction Additional Past Anesthesia/Blood Transfusion Reaction / Comment(s): WITH PAST DENTAL WORK-NUMBED MOUTH -NO REACTION TO MEDS Past Psychological History: No Psychological Hx Reported Smoking Status: Never smoker - Past Family History Mother Family Medical History: Osteoarthritis (OA) Additional Family Medical History / Comment(s): POLYCYSTIC OVARY DISEASE,HYPOGLYCEMIA, BONE SPURS, HERNIATED DISCS Father Family Medical History: Asthma Additional Family Medical History / Comment(s): HERNIATED DISCS/FUSIONS, HYPOGLYCEMIA General Exam Limitations: no limitations Course Vital Signs 11/01/21 15:03 Temperature 98.2 F Pulse Rate 88 Respiratory 20 Rate Blood Pressure 121/79 O2 Sat by Pulse 97 Oximetry Disposition Clinical Impression: Corneal abrasion Disposition: HOME SELF-CARE Condition: Fair Instructions (If sedation given, give patient instructions): Corneal Abrasion (ED) Additional Instructions: f/u with Dr. Cormier of opthamology tomorrow at 310pm. Is patient prescribed a controlled substance at d/c from ED?: No Referrals: Natacha Cormier MD [STAFF PHYSICIAN] - 11/02/21 3:10 am Time of Disposition: 16:40
== END 2021-11-01 17:15 | disposition home or self-care (01) ==
LOC: EC 14:42
DX: S05.01XA Injury of conjunctiva and corneal abrasion without foreign body, right eye, initial encounter (principal); Z23 Encounter for immunization; W50.0XXA Accidental hit or strike by another person, initial encounter
CPT/HCPCS: 90471; 90715; 99283

== ENCOUNTER → 2021-11-25 | Outpatient (CLI) | payer OTHER ==
[2021-11-25 19:06] LABS: Basophils # (A) 0.05 X 10*3/uL (0.00-0.10); Basophils % (A) 0.7 %; Eosinophils # (A) 0.18 X 10*3/uL (0.04-0.35); Eosinophils % (A) 2.7 %; HCT 39.3 % (37.2-46.3); HGB 12.9 g/dL (12.0-15.0); Immature Grans, Automated 0.1 %; Lymphocytes # (A) 2.29 X 10*3/uL (0.90-5.00); Lymphocytes % (A) 33.7 %; MCH 29.1 pg (27.0-32.0); MCHC 32.8 g/dL (32.0-37.0); MCV 88.7 fL (80.0-97.0); Mean Platelet Volume 9.3 fL (9.5-12.2); Monocytes # (A) 0.34 X 10*3/uL (0.20-1.00); NRBC Per 100 WBC 0 /100 WBCS (0.0-0.0); Neutrophils # (A) 3.92 X 10*3/uL (1.80-7.70); Neutrophils % (A) 57.8 %; Platelet Count 328 X 10*3/uL (140-440); RBC 4.43 X 10*6/uL (4.10-5.20); RDW 12.3 % (11.5-14.5); WBC 6.79 X 10*3/uL (4.50-10.00)
[2021-11-25 19:28] LABS: African American GFR (CKD) 126.7 (60.0-200.0); Albumin 4.4 g/dL (3.8-4.9); Albumin/Globulin Ratio 2.2 (1.60-3.17); Anion Gap 11.4 mmol/L (10.00-18.00); BUN/Creat Ratio 20.54 Ratio (12.00-20.00); Blood Urea Nitrogen 15.3 mg/dL (9.0-27.0); Calcium 9.3 mg/dL (8.7-10.3); Carbon Dioxide 21.7 mmol/L (20.0-27.5); Non-African American GFR(CKD) 109.4 (60.0-200.0); Potassium 4.3 mmol/L (3.5-5.5); Total Bilirubin 0.4 mg/dL (0.30-1.20); Total Protein 6.4 g/dL (6.2-8.2)
== END | disposition home or self-care (01) ==
LOC: LABWHC1 11:06
PROVIDERS: ATTEND Nurse Practitioner Acute Care
DX: Z51.81 Encounter for therapeutic drug level monitoring (principal); R56.9 Unspecified convulsions
CPT/HCPCS: 36415; 80053; 80177; 85025

== ENCOUNTER 2023-02-25 16:32 | Emergency (ER) | payer OTHER ==
[2023-02-25] MEDS ORDERED: SODIUM CHLORIDE 0.9% 500 ML 500 ML IV STA (16:59)
[2023-02-25 17:14] VITALS: BP 124/90; PULSE 66; RESP 16; TEMP 97.8
[2023-02-25 17:15] LABS: Basophils % (A) 0 %; Eosinophils # (A) 0.2 k/uL (0-0.7); Eosinophils % (A) 2 %; HCT 40.9 % (34.0-46.0); HGB 14.6 gm/dL (11.4-16.0); Lymphocytes # (A) 2.8 k/uL (1.0-4.8); Lymphocytes % (A) 30 %; MCH 32.2 pg (25.0-35.0); MCHC 35.7 g/dL (31.0-37.0); Mean Platelet Volume 6.8; Monocytes # (A) 0.3 k/uL (0-1.0); Monocytes % (A) 3 %; Neutrophils # (A) 6.1 k/uL (1.3-7.7); Neutrophils % (A) 64 %; Platelet Count 346 k/uL (150-450); RBC 4.54 m/uL (3.80-5.40); RDW 12.6 % (11.5-15.5); WBC 9.6 k/uL (3.8-10.6)
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
[2023-02-25 17:25] LABS: INR 0.9 (<1.2); Partial Thromboplastin Time 24.9 sec (22.0-30.0); Prothrombin Time 9.9 sec (9.0-12.0)
[2023-02-25 17:26] LABS: ALT 14 U/L (4-34); AST 21 U/L (14-36); African American GFR (CKD) >90 (>60 ml/min/1.73 sqM); Albumin 4.8 g/dL (3.5-5.0); Alcohol <10 mg/dL; Alkaline Phosphatase 61 U/L (38-126); Anion Gap 13 mmol/L; Blood Urea Nitrogen 11 mg/dL (7-17); Calcium 9.6 mg/dL (8.4-10.2); Carbon Dioxide 18 mmol/L (22-30); Chloride 109 mmol/L (98-107); Glucose 101 mg/dL (74-99); Non-African American GFR(CKD) 82 (>60 ml/min/1.73 sqM); Potassium 3.8 mmol/L (3.5-5.1); Sodium 140 mmol/L (137-145); Total Bilirubin 1.6 mg/dL (0.2-1.3); Total Protein 7.5 g/dL (6.3-8.2)
[2023-02-25] MEDS ORDERED: MORPHINE SULFATE 4 MG/ML SYRINGE IVP STA (17:27)
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
[2023-02-25 18:19] LABS: Appearance,Urine Clear (Clear); Bilirubin,Urine Negative (Negative); Blood,Urine Negative (Negative); Color,Urine Colorless; Glucose,Urine (UA) Negative (Negative); Ketones,Urine Negative (Negative); Leukocyte Esterase,Urine Negative (Negative); Nitrite,Urine Negative (Negative); PH, Urine 6.5 (5.0-8.0); Protein,Urine Negative (Negative); Specific Gravity,Urine 1.008 (1.001-1.035); Urobilinogen,Urine <2.0 mg/dL (<2.0)
[2023-02-25] MEDS ORDERED: HYDROmorphone 1 MG/ML 1 ML SYRINGE IVP STA (18:21)
[2023-02-25 18:30] LABS: Amphetamine Screen,Urine Not Detected (NotDetected); Cocaine Screen,Urine Not Detected (NotDetected); Opiate Screen,Urine Detected (NotDetected); Phencyclidine Screen,Urine Not Detected (NotDetected); Urn Cannabinoid Scrn Not Detected (NotDetected)
[2023-02-25 18:31] LABS: Barbiturate Screen,Urine Not Detected (NotDetected); Benzodiazepines Screen,Urine Not Detected (NotDetected); Methadone Screen, Urine Not Detected (NotDetected); Oxycodone Screen, Urine Not Detected (NotDetected); Tricyclic Antidepressant,Urine Not Detected (NotDetected)
== END 2023-02-25 19:13 | disposition home or self-care (01) ==
LOC: EC 16:32
DX: S13.9XXA Sprain of joints and ligaments of unspecified parts of neck, initial encounter (principal); S40.012A Contusion of left shoulder, initial encounter; F17.290 Nicotine dependence, other tobacco product, uncomplicated; V49.40XA Driver injured in collision with unspecified motor vehicles in traffic accident, initial encounter
CPT/HCPCS: 36415; 93005; 86900; 86901; 80053; 84484; 85025; 85610; 85730; 86850; 81003; 80306; 72170; 73000; 71045; 72125; 70486; 70450; 99285; 96374; 96375; 96361; G0480; J2270; J1170; 80320

== ENCOUNTER 2023-11-25 10:31 | Emergency (ER) | payer OTHER ==
[2023-11-25 10:38] VITALS: RESP 18
--- NOTE | 2023-11-25 11:17 | ED ---
Back Pain HPI - General Chief Complaint: Back Pain/Injury Stated Complaint: lower back pain L side Time Seen by Provider: 11/25/23 11:15 Source: patient, RN notes reviewed Limitations: no limitations - History of Present Illness Initial Comments: 28-year-old female presented to the ER with a chief complaint of back pain. Patient reports yesterday she was doing gardening and bending over frequently. She states she went to pull [employer] all of the ground and felt extreme sharp lumbar back pain with radiation to her left leg. She states the pain radiates from her buttock down to above her knee. She states has been painful to walk and bear weight on her left side. She reports laying flat improves her pain but sitting up and moving exacerbates it. She denies saddle paresthesias, bowel or bladder incontinence, fevers or history of IV drug use. Patient took an ibuprofen last night with mild relief. Patient denies any other injuries or complaints. - Related Data Home Medications Medication Instructions Recorded Confirmed Rizatriptan Benzoate [Maxalt] 10 mg PO BID PRN 02/25/23 02/25/23 Topiramate [Topamax] 50 mg PO BID 02/25/23 02/25/23 levETIRAcetam [Keppra] 750 mg PO BID 02/25/23 02/25/23 Previous Rx's Medication Instructions Recorded Cyclobenzaprine [Flexeril] 10 mg PO TID PRN #15 tab 11/25/23 Lidocaine 5% Patch [Lidoderm] 1 patch TOPICAL DAILY #10 patch 11/25/23 Allergies Allergy/AdvReac Type Severity Reaction Status Date / Time No Known Allergies Allergy Verified 11/25/23 10:36 Review of Systems ROS Statement: Those systems with pertinent positive or pertinent negative responses have been documented in the HPI. ROS Other: All systems not noted in ROS Statement are negative. Past Medical History Past Medical History: Seizure Disorder Additional Past Medical History / Comment(s): ovarian cysts, HYPOGLYCEMIC, CONCUSSION IN PAST WITH FIRST SEIZURE SHE FELL. MIGRAINES, SEASONAL ALLERGIES/SINUS, KIDNEYS STONE/UTI, ECZEMA, FX TO DALTON ANKLE/WRISTS-NO SX History of Any Multi-Drug Resistant Organisms: None Reported, MRSA Date of last positivie culture/infection: 2005 MDRO Source:: Mario casarez Past Surgical History: No Surgical Hx Reported Additional Past Surgical History / Comment(s): Patient had a renal stent placed Past Anesthesia/Blood Transfusion Reactions: No Reported Reaction Additional Past Anesthesia/Blood Transfusion Reaction / Comment(s): WITH PAST DENTAL WORK-NUMBED MOUTH -NO REACTION TO MEDS Past Psychological History: No Psychological Hx Reported Smoking Status: Vaper Past Alcohol Use History: None Reported Past Drug Use History: None Reported - Past Family History Mother Family Medical History: Osteoarthritis (OA) Additional Family Medical History / Comment(s): POLYCYSTIC OVARY DISEASE,HYPOGLYCEMIA, BONE SPURS, HERNIATED DISCS Father Family Medical History: Asthma Additional Family Medical History / Comment(s): HERNIATED DISCS/FUSIONS, HYPOGLYCEMIA General Exam Limitations: no limitations General appearance: alert, in no apparent distress Respiratory exam: Present: normal lung sounds bilaterally. Absent: respiratory distress, wheezes, rales, rhonchi, stridor Cardiovascular Exam: Present: regular rate, normal rhythm, normal heart sounds. Absent: systolic murmur, diastolic murmur, rubs, gallop, clicks Extremities exam: Present: normal inspection, full ROM, normal capillary refill. Absent: tenderness, pedal edema, joint swelling, calf tenderness Back exam: Present: normal inspection, tenderness (Lumbar spine and left pelvic girdle. Positive left straight leg raise. 2+ bilateral DP pulses. ) Neurological exam: Present: alert, oriented X3, CN II-XII intact Skin exam: Present: warm, dry, intact, normal color. Absent: rash Course Vital Signs 11/25/23 11/25/23 10:36 12:39 Temperature 98.2 F 98 F Pulse Rate 69 60 Respiratory 18 18 Rate Blood Pressure 117/81 102/68 O2 Sat by Pulse 97 Oximetry Medical Decision Making - Medical Decision Making Was pt. sent in by a medical professional or institution (, PA, ADMINISTRATION VICE PRESIDENT, urgent care, hospital, or skilled nursing...) When possible be specific @ -No Did you speak to anyone other than the patient for history (EMS, parent, family, police, friend...)? What history was obtained from this source @ -No Did you review nursing and triage notes (agree or disagree)? Why? @ -I reviewed and agree with nursing and triage notes Were old charts reviewed (outside hosp., previous admission, EMS record, old EKG, old radiological studies, urgent care reports/EKG's, skilled nursing records)? Report findings @ -No old charts were reviewed Differential Diagnosis (chest pain, altered mental status, abdominal pain women, abdominal pain men, vaginal bleeding, weakness, fever, dyspnea, syncope, headache, dizziness, GI bleed, back pain, seizure, CVA, palpatations, mental health, musculoskeletal)? @ -Differential Back Pain: Strain, zoster, cauda equina syndrome, epidural abscess, vertebral osteomyelitis, discitis, fracture, subluxation, disc herniation, DJD, spinal stenosis, dissection, AAA, pancreatitis, peptic ulcer disease, pyelonephritis, kidney stone, this is not meant to be an all-inclusive list. EKG interpreted by me (3pts min.). @ -None X-rays interpreted by me (1pt min.). @ -Lumbar spine x-rays interpreted by me negative for acute osseous process. CT interpreted by me (1pt min.). @ -None done U/S interpreted by me (1pt. min.). @ -None done What testing was considered but not performed or refused? (CT, X-rays, U/S, labs)? Why? @ -None What meds were considered but not given or refused? Why? @ -None Did you discuss the management of the patient with other professionals (professionals i.e. , PA, ADMINISTRATION VICE PRESIDENT, lab, RT, psych nurse, manager social work, applications chemist, teacher, parole hearing officer, heel caser)? Give summary @ -No Was smoking cessation discussed for >3mins.? @ -No Was critical care preformed (if so, how long)? @ -No Were there social determinants of health that impacted care today? How? (Homelessness, low income, unemployed, alcoholism, drug addiction, transportation, low edu. Level, literacy, decrease access to med. care, [facility], rehab)? @ -No Was there de-escalation of care discussed even if they declined (Discuss DNR or withdrawal of care, Hospice)? DNR status @ -No What co-morbidities impacted this encounter? (DM, HTN, Smoking, COPD, CAD, Cancer, CVA, ARF, Chemo, Hep., AIDS, mental health diagnosis, sleep apnea, morbid obesity)? @ -None Was patient admitted / discharged? Hospital course, mention meds given and route, prescriptions, significant lab abnormalities, going to OR and other pertinent info. @ -Discharge. 28-year-old female presented to ER with chief complaint of back pain. History and physical exam completed. Vitals stable. No red pain symptoms indicative of cauda equina syndrome. Tenderness to left lumbar spine. Bilateral lower extremities neurovascular intact. No erythema or contusions present. Patient received IM Toradol for pain control in the ER. X-rays obtained negative for acute process. Upon reevaluation, patient was comfortably in exam room in no signs of acute distress. Patient reporting mildly improved pain. Results discussed with patient, all questions answered. Pain has been musculoskeletal in nature. Lidocaine patches and Flexeril prescribed. Lidocaine patch placed before discharge. Advise close follow-up with PCP. Return parameters discussed. Patient discharged stable condition. Patient verbally expressed understanding agreement with care plan. Case discussed with ED attending, Dr. Harris. Undiagnosed new problem with uncertain prognosis? @ -No Drug Therapy requiring intensive monitoring for toxicity (Heparin, Nitro, Insulin, Cardizem)? @ -No Were any procedures done? @ -No Diagnosis/symptom? @ -Muscle spasm/back pain Acute, or Chronic, or Acute on Chronic? @ -Acute Uncomplicated (without systemic symptoms) or Complicated (systemic symptoms)? @ -Uncomplicated Side effects of treatment? @ -No Exacerbation, Progression, or Severe Exacerbation? @ -No Poses a threat to life or bodily function? How? (Chest pain, USA, NC, pneumonia, PE, COPD, DKA, ARF, appy, cholecystitis, CVA, Diverticulitis, Homicidal, Suicidal, threat to staff... and all critical care pts) @ -No - Radiology Data Radiology results: report reviewed, image reviewed Disposition Clinical Impression: Muscle spasm, Back pain Disposition: HOME SELF-CARE Condition: Stable Instructions (If sedation given, give patient instructions): Acute Low Back Pain (ED), Piriformis Syndrome (ED) Additional Instructions: Please be advised Flexeril may make you drowsy or sleepy. Continue taking [id number] Tylenol and Motrin for pain control. Return to the ER for any new or worsening concerns. Prescriptions: Cyclobenzaprine [Flexeril] 10 mg PO TID PRN #15 tab PRN Reason: Muscle Spasm Lidocaine 5% Patch [Lidoderm] 1 patch TOPICAL DAILY #10 patch Is patient prescribed a controlled substance at d/c from ED?: No Referrals: None,Stated [Primary Care Provider] - 1-2 days Forms: Area PCPs Time of Disposition: 12:49
[2023-11-25] MEDS: KETOROLAC 15 MG/ML 1 ML VIAL IM STA (11:20)
--- NOTE | 2023-11-25 12:32 | XR ---
EXAMINATION TYPE: XR lumbar spine 2 or 3V DATE OF EXAM: 11/25/2023 11:38 AM CLINICAL INDICATION:Female, 28 years old with history of left sided back pain; [facility] COMPARISON: None TECHNIQUE: XR lumbar spine 2 or 3V - Frontal, lateral and coned down L5-S1 lateral views of the lumba r spine. FINDINGS: There are 5 lumbar-type vertebral bodies. Mineralization appears within normal limits. No osseous michelle tructive process seen. Vertebral body heights and disc spacing are preserved. There is normal alignme nt of the lumbar vertebral bodies. No significant degenerative changes throughout the spine. Soft tissues are unremarkable. Incidentally noted multiple specks of radiodensity projected over the right colon, suggesting some so rt of ingested radiodense material. IMPRESSION: 1. No radiographic evidence of acute compression fracture.
[2023-11-25 12:39] VITALS: BP 102/68; TEMP 98
[2023-11-25 12:40] VITALS: PULSE 60
[2023-11-25] MEDS: LIDOCAINE 4% PATCH TOPICAL ONE (13:02)
== END 2023-11-25 13:10 | disposition home or self-care (01) ==
LOC: EC 10:31
DX: M62.830 Muscle spasm of back (principal); F17.290 Nicotine dependence, other tobacco product, uncomplicated; X50.9XXA Other and unspecified overexertion or strenuous movements or postures, initial encounter
CPT/HCPCS: 72100; 99283; 96372; J1885

== ENCOUNTER 2023-12-24 13:00 | Emergency (ER) | payer OTHER ==
[2023-12-24 13:19] VITALS: RESP 18; TEMP 98
--- NOTE | 2023-12-24 13:19 | ED ---
Back Pain HPI - General Chief Complaint: Back Pain/Injury Stated Complaint: Fall-Back pain Time Seen by Provider: 12/24/23 13:15 Source: patient, RN notes reviewed Mode of arrival: ambulatory Limitations: no limitations - History of Present Illness Initial Comments: This is a 28 year old female who presents to the emergency department for back pain after a fall. She went to sit in a folding chair yesterday and it collapsed, causing her to fall onto her back. Currently having pain in the lower back/tail bone area. She has some radiation down the left leg. Denies any loss of bowel/bladder control or saddle anesthesia. MD Complaint: back pain, back injury, fall - Related Data Home Medications Medication Instructions Recorded Confirmed Rizatriptan Benzoate [Maxalt] 10 mg PO BID PRN 02/25/23 02/25/23 Topiramate [Topamax] 50 mg PO BID 02/25/23 02/25/23 levETIRAcetam [Keppra] 750 mg PO BID 02/25/23 02/25/23 Previous Rx's Medication Instructions Recorded Cyclobenzaprine [Flexeril] 10 mg PO TID PRN #15 tab 11/25/23 Lidocaine 5% Patch [Lidoderm] 1 patch TOPICAL DAILY #10 patch 11/25/23 Cyclobenzaprine [Flexeril] 10 mg PO TID PRN #30 tab 12/24/23 Ketorolac [Toradol] 10 mg PO Q6HR PRN #15 tab 12/24/23 Allergies Allergy/AdvReac Type Severity Reaction Status Date / Time No Known Allergies Allergy Verified 12/24/23 13:19 Review of Systems ROS Statement: Those systems with pertinent positive or pertinent negative responses have been documented in the HPI. ROS Other: All systems not noted in ROS Statement are negative. Past Medical History Past Medical History: Seizure Disorder Additional Past Medical History / Comment(s): ovarian cysts, HYPOGLYCEMIC, CONCUSSION IN PAST WITH FIRST SEIZURE SHE FELL. MIGRAINES, SEASONAL ALLERGIES/SINUS, KIDNEYS STONE/UTI, ECZEMA, FX TO DALTON ANKLE/WRISTS-NO SX History of Any Multi-Drug Resistant Organisms: None Reported, MRSA Date of last positivie culture/infection: 2005 MDRO Source:: R cheek Past Surgical History: No Surgical Hx Reported Additional Past Surgical History / Comment(s): Patient had a renal stent placed Past Anesthesia/Blood Transfusion Reactions: No Reported Reaction Additional Past Anesthesia/Blood Transfusion Reaction / Comment(s): WITH PAST DENTAL WORK-NUMBED MOUTH -NO REACTION TO MEDS Past Psychological History: No Psychological Hx Reported Smoking Status: Vaper Past Alcohol Use History: None Reported Past Drug Use History: None Reported - Past Family History Mother Family Medical History: Osteoarthritis (OA) Additional Family Medical History / Comment(s): POLYCYSTIC OVARY DISEASE,HYPOGLYCEMIA, BONE SPURS, HERNIATED DISCS Father Family Medical History: Asthma Additional Family Medical History / Comment(s): HERNIATED DISCS/FUSIONS, HYPOGLYCEMIA General Exam Limitations: no limitations General appearance: alert, in no apparent distress Head exam: Present: atraumatic, normocephalic, normal inspection Respiratory exam: Present: normal lung sounds bilaterally. Absent: respiratory distress, wheezes, rales, rhonchi, stridor Cardiovascular Exam: Present: regular rate, normal rhythm, normal heart sounds. Absent: systolic murmur, diastolic murmur, rubs, gallop, clicks Back exam: Present: other (Tenderness to palpation over the lower lumbar spine) Neurological exam: Present: alert, oriented X3, CN II-XII intact Psychiatric exam: Present: normal affect, normal mood Skin exam: Present: warm, dry, intact, normal color. Absent: rash Course Vital Signs 12/24/23 12/24/23 13:17 15:24 Temperature 98 F Pulse Rate 76 60 Respiratory 18 18 Rate Blood Pressure 108/72 O2 Sat by Pulse 98 Oximetry Medical Decision Making - Medical Decision Making This is a 28 year old female who presents to the emergency department for low back pain after a fall. Was pt. sent in by a medical professional or institution? @ -No Did you speak to anyone other than the patient for history? @ -No Did you review nursing and triage notes? @ -Yes, and I agree, it is accurate with regards to the patient's symptoms. Were old charts reviewed? @ -No Differential Diagnosis? @ -Differential Back Pain: Strain, zoster, cauda equina syndrome, epidural abscess, vertebral osteomyelitis, discitis, fracture, subluxation, disc herniation, DJD, spinal stenosis, dissection, AAA, pancreatitis, peptic ulcer disease, pyelonephritis, kidney stone, this is not meant to be an all-inclusive list. EKG interpreted by me (3pts min.)? @ -Not obtained X-rays interpreted by me (1pt min.)? @ -X-ray of the lumbar spine and sacrum/coccyx obtained. My interpretation identifies no acute fractures. CT interpreted by me (1pt min.)? @ -Not obtained U/S interpreted by me (1pt. min.)? @ -Not obtained What testing was considered but not performed? (CT, X-rays, U/S, labs)? Why? @ -None What meds were considered but not given? Why? @ -None Did you discuss the management of the patient with other professionals? @ -No Did you reconcile home meds? @ -No Was smoking cessation discussed for >3mins.? @ -No Was critical care preformed (if so, how long)? @ -No Were there social determinants of health that impacted care today? How? (Homelessness, low income, unemployed, alcoholism, drug addiction, transportation, low edu. Level, literacy, decrease access to med. care, [facility], rehab)? @ -No Was there de-escalation of care discussed even if they declined? (Discuss DNR or withdrawal of care, Hospice)? @ -No What co-morbidities impacted this encounter? (DM, HTN, Smoking, COPD, CAD, Cancer, CVA, Hep., AIDS, mental health diagnosis, sleep apnea, morbid obesity)? @ -None Was patient admitted / discharged? @ -Discharged. X-ray of the lumbar spine and sacrum/coccyx obtained demonstrating no acute fractures. Pain was managed in the emergency department. Prescription for Toradol and Flexeril provided with dosing instructions reviewed. Also advised using something like a donut pillow when seated to take pressure off of the painful area. Patient discharged home in stable condition. Case discussed with ED attending Dr. Harris. Return precautions reviewed in depth, the patient is instructed to return to the emergency department with any new, worsening, or concerning symptoms. Patient verbalized understanding. Undiagnosed new problem with uncertain prognosis? @ -None Drug Therapy requiring intensive monitoring for toxicity (Heparin, Nitro, Insulin, Cardizem)? @ -None Were any procedures done? @ -None Diagnosis/symptom? @ -Fall, low back pain Acute, or Chronic, or Acute on Chronic? @ -Acute Uncomplicated (without systemic symptoms) or Complicated (systemic symptoms)? @ -Uncomplicated Side effects of treatment? @ -None Exacerbation, Progression, or Severe Exacerbation] @ -Not applicable Poses a threat to life or bodily function? @ -No - Radiology Data Radiology results: report reviewed, image reviewed Disposition Clinical Impression: Fall, Low back pain Disposition: HOME SELF-CARE Condition: Good Instructions (If sedation given, give patient instructions): Acute Low Back Pain (ED) Additional Instructions: Return to the emergency department with any new, worsening, or concerning symptoms. Take the Toradol with Tylenol as needed for pain relief. If you choose to take the Toradol, do not take any other anti-inflammatories such as ibuprofen, take one or the other. You can take the Flexeril up to 3 times daily. Be aware that it may make you drowsy. Apply ice for 15 to 20 minutes every 2-3 hours. Try using something like a donut pillow to take pressure off of the area when you are seated. Follow up with your primary care provider in 1-2 days. Prescriptions: Cyclobenzaprine [Flexeril] 10 mg PO TID PRN #30 tab PRN Reason: Pain Ketorolac [Toradol] 10 mg PO Q6HR PRN #15 tab PRN Reason: Pain Is patient prescribed a controlled substance at d/c from ED?: No Referrals: None,Stated [Primary Care Provider] - 1-2 days Time of Disposition: 15:09
[2023-12-24] MEDS: LIDOCAINE 4% PATCH TOPICAL ONE (13:33)
[2023-12-24] MEDS: KETOROLAC 15 MG/ML 1 ML VIAL IVP STA ×2 (13:34→15:30)
[2023-12-24] MEDS: HYDROmorphone 1 MG/ML 1 ML SYRINGE IVP STA ×2 (13:35→15:31)
--- NOTE | 2023-12-24 14:44 | XR ---
Lumbar spine HISTORY: Fall. COMPARISON: 11/25/2023. TECHNIQUE: 3 views of the lumbar spine were obtained FINDINGS: Lumbar vertebral segments are normal in height and alignment appears no fracture or subluxation The disc spaces are well-preserved. Facet joints are intact. Visualized sacrum and SI joints are norm al. IMPRESSION: No significant abnormality seen. No evidence of acute trauma
--- NOTE | 2023-12-24 14:46 | XR ---
Sacrum and coccyx. HISTORY: Fall. COMPARISON: None TECHNIQUE: 3 views of sacrum and coccyx were obtained FINDINGS: There is no fracture or focal intraosseous abnormality of the sacrum or coccyx. There is no diastasis or sclerosis of the SI joints or pubic symphysis. IMPRESSION: No significant abnormality seen. No evidence of acute trauma.
[2023-12-24 15:25] VITALS: BP 108/72; PULSE 60
[2023-12-24] MEDS: traMADol 50 MG STARTER PACK 3 TAB BTL PO STA (15:32)
== END 2023-12-24 15:40 | disposition home or self-care (01) ==
LOC: EC 13:00
DX: M54.50 Low back pain, unspecified (principal); F17.290 Nicotine dependence, other tobacco product, uncomplicated; W01.0XXA Fall on same level from slipping, tripping and stumbling without subsequent striking against object, initial encounter
CPT/HCPCS: 72100; 72220; 99283; 96374; 96375; 96376 ×2; J1170; J1885

== ENCOUNTER 2024-02-06 11:17 | Emergency (ER) | payer OTHER ==
--- NOTE | 2024-02-06 11:55 | ED ---
Abdominal Pain HPI - General Source: patient, RN notes reviewed Mode of arrival: ambulatory Limitations: no limitations <Beth Pastor - Last Filed: 02/06/24 11:54> <[place] Oscar - Last Filed: 02/11/24 16:02> - General Chief Complaint: Abdominal Pain Stated Complaint: lower abd pain Time Seen by Provider: 02/06/24 11:54 - History of Present Illness Initial Comments: Quick note: 28-year-old female presented to the ER with a chief complaint of lower abdominal pain. She states there is radiation to her back. She is also endorsing urinary frequency and a pressure sensation. She denies any vaginal bleeding or discharge. Patient does have a history of kidney stones and ovarian cyst. (Beth Pastor) Is a 28-year-old female who presents to the emergency department stating that she has had some lower abdominal pain for a week. Patient states she has had no diarrhea no nausea no vomiting. Patient states she has had kidney issues before so she decided to come in. Patient denies any dysuria hematuria urinary frequency or patient states he is not because she has had her tubes tied. Patient has a history of seizures and has a vagal stimulator in place. Patient denies any fever chills. Patient has any back pain. ([place] Oscar) - Related Data Home Medications Medication Instructions Recorded Confirmed Rizatriptan Benzoate [Maxalt] 10 mg PO BID PRN 02/25/23 02/25/23 Topiramate [Topamax] 50 mg PO BID 02/25/23 02/25/23 levETIRAcetam [Keppra] 750 mg PO BID 02/25/23 02/25/23 Previous Rx's Medication Instructions Recorded Cyclobenzaprine [Flexeril] 10 mg PO TID PRN #15 tab 11/25/23 Lidocaine 5% Patch [Lidoderm] 1 patch TOPICAL DAILY #10 patch 11/25/23 Cyclobenzaprine [Flexeril] 10 mg PO TID PRN #30 tab 12/24/23 Ketorolac [Toradol] 10 mg PO Q6HR PRN #15 tab 12/24/23 Allergies Allergy/AdvReac Type Severity Reaction Status Date / Time No Known Allergies Allergy Verified 02/06/24 11:33 Review of Systems ROS Other: All systems not noted in ROS Statement are negative. <Beth Pastor - Last Filed: 02/06/24 11:54> ROS Other: All systems not noted in ROS Statement are negative. <[place] Oscar - Last Filed: 02/11/24 16:02> ROS Statement: Those systems with pertinent positive or pertinent negative responses have been documented in the HPI. Past Medical History Past Medical History: Seizure Disorder Additional Past Medical History / Comment(s): ovarian cysts, HYPOGLYCEMIC, CONCUSSION IN PAST WITH FIRST SEIZURE SHE FELL. MIGRAINES, SEASONAL ALLERGIES/SINUS, KIDNEYS STONE/UTI, ECZEMA, FX TO DALTON ANKLE/WRISTS-NO SX History of Any Multi-Drug Resistant Organisms: None Reported, MRSA Date of last positivie culture/infection: 2005 MDRO Source:: R cheek Past Surgical History: No Surgical Hx Reported Additional Past Surgical History / Comment(s): Patient had a renal stent placed Past Anesthesia/Blood Transfusion Reactions: No Reported Reaction Additional Past Anesthesia/Blood Transfusion Reaction / Comment(s): WITH PAST DENTAL WORK-NUMBED MOUTH -NO REACTION TO MEDS Past Psychological History: No Psychological Hx Reported Smoking Status: Vaper Past Alcohol Use History: None Reported Past Drug Use History: None Reported - Past Family History Mother Family Medical History: Osteoarthritis (OA) Additional Family Medical History / Comment(s): POLYCYSTIC OVARY DISEASE ,HYPOGLYCEMIA, BONE SPURS, HERNIATED DISCS Father Family Medical History: Asthma Additional Family Medical History / Comment(s): HERNIATED DISCS/FUSIONS, HYPOGLYCEMIA <Beth Pastor - Last Filed: 02/06/24 11:54> General Exam Limitations: no limitations <Beth Pastor - Last Filed: 02/06/24 11:54> <[place] Oscar - Last Filed: 02/11/24 16:02> - General Exam Comments Initial Comments: Visual Physical Exam Vital signs reviewed General: Well-appearing, nontoxic, no acute distress. Head: Normocephalic, atraumatic Eyes: PERRLA, EOMI ENT: Airway patent Chest: Nonlabored breathing Skin: No visual rash, normal skin tone Neuro: Alert and oriented 3 Musculoskeletal: No gross abnormalities (Beth Pastor) GENERAL: Patient is well-developed and well-nourished. Patient is nontoxic and well- hydrated and is in acute distress. ENT: Neck is soft and supple. No significant lymphadenopathy is noted. Oropharynx is clear. Moist mucous membranes. Neck has full range of motion without eliciting any pain. EYES: The sclera were anicteric and conjunctiva were pink and moist. Extraocular movements were intact and pupils were equal round and reactive to light. Eyelids were unremarkable. PULMONARY: Unlabored respirations. Good breath sounds bilaterally. No audible rales rhonchi or wheezing was noted. CARDIOVASCULAR: There is a regular rate and rhythm without any murmurs gallops or rubs. ABDOMEN: Soft and nontender with normal bowel sounds. There is no area of tenderness on palpation SKIN: Skin is clear with no lesions or rashes and otherwise unremarkable. NEUROLOGIC: Patient is alert and oriented x3. Cranial nerves II through XII are grossly intact. Motor and sensory are also intact. Normal speech, volume and content. Symmetrical smile. MUSCULOSKELETAL: Normal extremities with adequate strength and full range of motion. LYMPHATICS: No significant lymphadenopathy is noted PSYCHIATRIC: Normal psychiatric evaluation. ([place] Oscar) Course Vital Signs 02/06/24 02/06/24 11:32 13:48 Temperature 98.4 F 98.2 F Pulse Rate 103 H 57 L Respiratory 20 18 Rate Blood Pressure 122/77 123/84 O2 Sat by Pulse 98 99 Oximetry Medical Decision Making <Beth Pastor - Last Filed: 02/06/24 11:54> - Lab Data Result diagrams: 02/06/24 12:40 02/06/24 12:40 <[place] Oscar - Last Filed: 02/11/24 16:02> - Medical Decision Making I performed the quick note portion of this chart. Electronically signed by Beth Pastor PA-C (Beth Pastor) Was pt. sent in by a medical professional or institution ([facility], [facility], urgent care, hospital, or prison...) When possible be specific @ -No Did you speak to anyone other than the patient for history (EMS, parent, family, police, friend...)? What history was obtained from this source @ -No Did you review nursing and triage notes (agree or disagree)? Why? @ -I reviewed and agree with nursing and triage notes Were old charts reviewed (outside hosp., previous admission, EMS record, old EKG, old radiological studies, urgent care reports/EKG's, prison records)? Report findings @ -No old charts were reviewed Differential Diagnosis? @ -Differential Abdominal Pain Women: Appendicitis, Cholecystitis, diverticulosis, ischemic bowel, pancreatitis, hepatitis, UTI, gastroenteritis, AAA, incarcerated hernia, bowel obstruction, constipation, inflammatory bowel, hepatitis, peptic ulcer disease, splenic infarction, perforated viscus, vulvitis, ovarian torsion, PID, kidney stone, placenta abruption, this is not meant to be an all-inclusive list EKG interpreted by me (3pts min.). @ -Abdominal pain none none X-rays interpreted by me (1pt min.). @ -KUB shows no acute abnormality CT interpreted by me (1pt min.). @ -None done U/S interpreted by me (1pt. min.). @ -None done What testing was considered but not performed or refused? (CT, X-rays, U/S, labs)? Why? @ -None What meds were considered but not given or refused? Why? @ -None Did you discuss the management of the patient with other professionals (professionals i.e. , PA, GALLEY WORKER, lab, RT, psych nurse, social science analyst, warpman, teacher, commissioned police officer, manager case management)? Give summary @ -No Was smoking cessation discussed for >3mins.? @ -No Was critical care preformed (if so, how long)? @ -No Were there social determinants of health that impacted care today? How? (Homelessness, low income, unemployed, alcoholism, drug addiction, transportation, low edu. Level, literacy, decrease access to med. care, nursing home, rehab)? @ -No Was there de-escalation of care discussed even if they declined (Discuss DNR or withdrawal of care, Hospice)? DNR status @ -No What co-morbidities impacted this encounter? (DM, HTN, Smoking, COPD, CAD, Cancer, CVA, ARF, Chemo, Hep., AIDS, mental health diagnosis, sleep apnea, m orbid obesity)? @ -None Was patient admitted / discharged? Hospital course, mention meds given and r oute, prescriptions, significant lab abnormalities, going to OR and other pertinent info. @ -Patient had a nonacute abdomen I could find no specific area of tenderness. Patient's lab work all came back within normal range urine came back within normal range and x-ray showed no acute abnormality. Patient is instructed to follow-up with the PMD Undiagnosed new problem with uncertain prognosis? @ -No Drug Therapy requiring intensive monitoring for toxicity (Heparin, Nitro, Insulin, Cardizem)? @ -No Were any procedures done? @ -No Diagnosis/symptom? @ -Suprapubic abdominal pain Acute, or Chronic, or Acute on Chronic? @ -Acute Uncomplicated (without systemic symptoms) or Complicated (systemic symptoms)? @ -Complicated Side effects of treatment? @ -No Exacerbation, Progression, or Severe Exacerbation? @ -No Poses a threat to life or bodily function? How? (Chest pain, [place], [place], pneumonia, PE, COPD, DKA, ARF, appy, cholecystitis, CVA, Diverticulitis, Homicidal, Suicidal, threat to staff... and all critical care pts) @ -No ([place] Oscar) - Lab Data Lab Results 02/06/24 02/06/24 02/06/24 Range/Units 11:40 11:41 12:40 WBC 10.0 (3.8-10.6) k/uL RBC 4.55 (3.80-5.40) m/uL Hgb 14.5 (11.4-16.0) gm/dL Hct 42.0 (34.0-46.0) % MCV 92.3 (80.0-100.0) fL MCH 31.8 (25.0-35.0) pg MCHC 34.5 (31.0-37.0) g/dL RDW 12.6 (11.5-15.5) % Plt Count 344 (150-450) k/uL MPV 6.9 Neutrophils % 68 % Lymphocytes % 24 % Monocytes % 4 % Eosinophils % 2 % Basophils % 1 % Neutrophils # 6.8 (1.3-7.7) k/uL Lymphocytes # 2.4 (1.0-4.8) k/uL Monocytes # 0.4 (0-1.0) k/uL Eosinophils # 0.2 (0-0.7) k/uL Basophils # 0.1 (0-0.2) k/uL Sodium (137-145) mmol/L Potassium (3.5-5.1) mmol/L Chloride (98-107) mmol/L Carbon Dioxide (22-30) mmol/L Anion Gap mmol/L BUN (7-17) mg/dL Creatinine (0.52-1.04) mg/dL Est GFR (CKD-EPI)AfAm (>60 ml/min/1.73 sqM) Est GFR (CKD-EPI)NonAf (>60 ml/min/1.73 sqM) Glucose (74-99) mg/dL Calcium (8.4-10.2) mg/dL Total Bilirubin (0.2-1.3) mg/dL AST (14-36) U/L ALT (4-34) U/L Alkaline Phosphatase (38-126) U/L Total Protein (6.3-8.2) g/dL Albumin (3.5-5.0) g/dL Amylase (30-110) U/L Lipase (23-300) U/L Urine Color Light Yellow Urine Appearance Clear (Clear) Urine pH 7.0 (5.0-8.0) Ur Specific Moh[place] 1.021 (1.001-1.035) Urine Protein Negative (Negative) Urine Glucose (UA) Negative (Negative) Urine Ketones Negative (Negative) Urine Blood Negative (Negative) Urine Nitrite Negative (Negative) Urine Bilirubin Negative (Negative) Urine Urobilinogen <2.0 (<2.0) mg/dL Ur Leukocyte Esterase Negative (Negative) Urine HCG, Qual Not Detected (Not Detectd) 02/06/24 Range/Units 12:40 WBC (3.8-10.6) k/uL RBC (3.80-5.40) m/uL Hgb (11.4-16.0) gm/dL Hct (34.0-46.0) % MCV (80.0-100.0) fL MCH (25.0-35.0) pg MCHC (31.0-37.0) g/dL RDW (11.5-15.5) % Plt Count (150-450) k/uL MPV Neutrophils % % Lymphocytes % % Monocytes % % Eosinophils % % Basophils % % Neutrophils # (1.3-7.7) k/uL Lymphocytes # (1.0-4.8) k/uL Monocytes # (0-1.0) k/uL Eosinophils # (0-0.7) k/uL Basophils # (0-0.2) k/uL Sodium 139 (137-145) mmol/L Potassium 4.5 (3.5-5.1) mmol/L Chloride 107 (98-107) mmol/L Carbon Dioxide 23 (22-30) mmol/L Anion Gap 9 mmol/L BUN 12 (7-17) mg/dL Creatinine 0.66 (0.52-1.04) mg/dL Est GFR (CKD-EPI)AfAm >90 (>60 ml/min/1.73 sqM) Est GFR (CKD-EPI)NonAf >90 (>60 ml/min/1.73 sqM) Glucose 97 (74-99) mg/dL Calcium 9.7 (8.4-10.2) mg/dL Total Bilirubin 1.2 (0.2-1.3) mg/dL AST 26 (14-36) U/L ALT 13 (4-34) U/L Alkaline Phosphatase 48 (38-126) U/L Total Protein 6.7 (6.3-8.2) g/dL Albumin 4.3 (3.5-5.0) g/dL Amylase 61 (30-110) U/L Lipase 82 (23-300) U/L Urine Color Urine Appearance (Clear) Urine pH (5.0-8.0) Ur Specific Moh[place] (1.001-1.035) Urine Protein (Negative) Urine Glucose (UA) (Negative) Urine Ketones (Negative) Urine Blood (Negative) Urine Nitrite (Negative) Urine Bilirubin (Negative) Urine Urobilinogen (<2.0) mg/dL Ur Leukocyte Esterase (Negative) Urine HCG, Qual (Not Detectd) Disposition <Beth Pastor - Last Filed: 02/06/24 11:54> Is patient prescribed a controlled substance at d/c from ED?: No Time of Disposition: 13:23 <[place] Oscar - Last Filed: 02/11/24 16:02> Clinical Impression: Abdominal pain Disposition: HOME SELF-CARE Instructions (If sedation given, give patient instructions): Abdominal Pain (ED) Referrals: None,Stated [Primary Care Provider] - 1-2 days
[2024-02-06 12:09] LABS: Appearance,Urine Clear (Clear); Bilirubin,Urine Negative (Negative); Blood,Urine Negative (Negative); Color,Urine Light Yellow; Glucose,Urine (UA) Negative (Negative); Ketones,Urine Negative (Negative); Leukocyte Esterase,Urine Negative (Negative); Nitrite,Urine Negative (Negative); Protein,Urine Negative (Negative); Specific Gravity,Urine 1.021 (1.001-1.035); Urobilinogen,Urine <2.0 mg/dL (<2.0)
--- NOTE | 2024-02-06 12:42 | XR ---
EXAMINATION TYPE: XR KUB DATE OF EXAM: 02/06/2024 COMPARISON: KUB radiograph 01/16/2015, pelvic radiograph 02/25/2023 HISTORY: Abdominal pain TECHNIQUE: Single upright KUB image of the abdomen is obtained FINDINGS: Small bowel demonstrates no evidence for dilatation or air fluid levels. Gas is identified within the colon. No convincing evidence for pneumoperitoneum. Couple of pelvic phleboliths redemonstrated. The lung bases are clear. The osseous structures are intact. IMPRESSION: Overall nonobstructive bowel gas pattern.
[2024-02-06 12:53] LABS: Basophils # (A) 0.1 k/uL (0-0.2); Basophils % (A) 1 %; Eosinophils # (A) 0.2 k/uL (0-0.7); Eosinophils % (A) 2 %; HGB 14.5 gm/dL (11.4-16.0); Lymphocytes # (A) 2.4 k/uL (1.0-4.8); Lymphocytes % (A) 24 %; MCH 31.8 pg (25.0-35.0); MCHC 34.5 g/dL (31.0-37.0); MCV 92.3 fL (80.0-100.0); Mean Platelet Volume 6.9; Monocytes # (A) 0.4 k/uL (0-1.0); Monocytes % (A) 4 %; Neutrophils # (A) 6.8 k/uL (1.3-7.7); Neutrophils % (A) 68 %; Platelet Count 344 k/uL (150-450); RBC 4.55 m/uL (3.80-5.40); RDW 12.6 % (11.5-15.5)
[2024-02-06 13:04] LABS: ALT 13 U/L (4-34); AST 26 U/L (14-36); African American GFR (CKD) >90 (>60 ml/min/1.73 sqM); Albumin 4.3 g/dL (3.5-5.0); Alkaline Phosphatase 48 U/L (38-126); Amylase 61 U/L (30-110); Anion Gap 9 mmol/L; Blood Urea Nitrogen 12 mg/dL (7-17); Calcium 9.7 mg/dL (8.4-10.2); Carbon Dioxide 23 mmol/L (22-30); Chloride 107 mmol/L (98-107); Glucose 97 mg/dL (74-99); Lipase 82 U/L (23-300); Non-African American GFR(CKD) >90 (>60 ml/min/1.73 sqM); Potassium 4.5 mmol/L (3.5-5.1); Sodium 139 mmol/L (137-145); Total Bilirubin 1.2 mg/dL (0.2-1.3); Total Protein 6.7 g/dL (6.3-8.2)
[2024-02-06 13:49] VITALS: BP 123/84; PULSE 57; RESP 18; TEMP 98.2
== END 2024-02-06 13:50 | disposition home or self-care (01) ==
LOC: EC 11:17
CPT/HCPCS: 36415; 74018; 80053; 81003; 81025; 82150; 83690; 85025; 99284